=== PATIENT | female | born 1940 | race Caucasian/White ===

== ENCOUNTER 2019-07-14 02:36 | Inpatient (IN) | payer MEDICARE, SELFPAY ==
[2019-07-14] VITALS (13 sets, daily range): BP systolic 127–179; BP diastolic 65–127; PULSE 63–96; RESP 16–20; TEMP 36.3–37.4; O2SAT 97–100; BMI 26.4; BMI 24.6
--- NOTE | 2019-07-14 02:05 | ED.DCSUM_ITS ---
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 She has no back pain she had no head injury or loss of consciousness she has no other injury. She received 25 mcg of fentanyl IM via EMS. This provided very little relief. Past Medical History - Allergies and Home Meds Allergies/Adverse Reactions: Allergies No Known Allergies Allergy (Unverified 07/14/19 02:01) Primary Care Physician: Shelley Dubon,Out of [NON-STAFF] - Past Medical History: - - Reviewed and unremarkable Smoking Status: Former smoker Review of Systems General: Reports: - - No head injury or loss of consciousness Cardiovascular: Denies: Chest pain Respiratory: Denies: Dyspnea Gastrointestinal: Denies: Abdominal pain, Nausea Genitourinary: Denies: Dysuria Musculoskeletal: Reports: Arthralgias, Extremity Pain Skin: Denies: Wounds Neurological: Denies: Headache, Weakness, Parasthesia, Numbness Psych: Denies: Anxiety Hematologic: Denies: Easy bruising Physical Exam Vital Signs/Narrative: Vital Signs Temp Pulse Resp BP Pulse Ox 07/14/19 01:54 97.4 F L 67 20 H 179/127 H 98 General: Well nourished, Well developed ENT: Moist mucous membranes Cardiovascular: Regular rate, Regular rhythm Respiratory: No distress, CTA bilaterally Abdomen: Soft, Nontender Back: Nontender, Normal Inspection Extremities: - - Left hip is shortened and externally rotated, it is painful to logrolling. She has normal distal pulses. Skin: Normal color Neurological: Alert, Normal Strength, Normal Sensation Diagnostic/Tx/Re-eval Chest X-Ray - ED: 1 View, Read by ED Physician, Normal, Heart, Lungs Left hip x-ray interpreted by me, shows a femoral neck fracture, it is displaced. - Rhythm Strip Rhythm Strip: A-fib Rate: 91 Ectopy: PVC(s) - EKG Initial EKG Interpretation: - - Atrial fibrillation with a rate of 91. There are some PVCs present. There is nonspecific ST and T wave abnormalities. Otherwise normal EKG Interpreted by emergency doctor - Medical Decision Making Patient is found to have a femoral neck fracture. She is on Xarelto, I will call orthopedics as well as hospitalist for admission. ED Disposition - Plan for ED Patient: Disposition: Home or Assisted Living Diagnosis: Hip fracture Referrals: Town Doctor,Out of [NON-STAFF] -
[2019-07-14] MEDS: Morphine 4 MG/ML Syringe IV ×3 (02:14→06:22)
[2019-07-14] MEDS: Ondansetron 4 MG/2 ML Vial IV ×3 (02:14→19:49)
[2019-07-14 02:43] LABS: Absolute Lymphocyte Count 2.35 X10^3/uL (0.83-4.51); Absolute Neutrophil Count 3.6 X10^3/uL (2.0-7.7); Basophil# 0.03 X10^3/uL; Basophil% 0.4 % (0-1); Eosinophils% 1.4 % (0-5); Hematocrit 43.7 % (37-47); Lymphocyte # 2.35 X10^3/ul (4.0); Lymphocyte % 33.7 % (19-41); Mean Corpuscular Hgb 32.5 pg (27.0-32.0); Mean Corpuscular Volume 101.4 fL (81-99); Mean Platelet Vol. 9.4 fl (6.2-12.0); Monocyte# 0.85 X10^3/uL; Monocyte% 12.2 % (0-10); NRBC Flagged by Analyzer 0 % (0-5); Neutrophil # 3.56 X10^3/uL (2.7-7.7); Neutrophil % 51.2 % (47-70); Platelet Count 215 K/mm3 (150-450); RBC Distribution Width SD 52.8 fl (35.1-43.9); Red Blood Count 4.31 M/mm3 (4.2-5.4)
--- NOTE | 2019-07-14 02:45 | RAD_ITS ---
STUDY: X-RAY CHEST REASON FOR EXAM: Female, 71 years old. TRUAMA, LEFT HIP PAIN TECHNIQUE: Single AP portable view of the chest. COMPARISON: None. 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 The lungs are clear and expanded. There is no demonstrated pleural abnormality. Normal size heart. Normal mediastinum and jonathon. Normal visualized pulmonary arteries. There is atherosclerotic calcification of the aortic arch with tortuosity. There is demineralization of the osseous structures. There is degenerative osteoarthritis of the bilateral shoulders. There is no demonstrated abnormality of the visualized soft tissue structures of the upper abdomen. RAD/Chest 1 View IMPRESSION: No acute cardiopulmonary disease. Electronically Signed: Tammy Miller MD at 3:53 EDT , Service support ,
--- NOTE | 2019-07-14 02:45 | RAD_ITS ---
STUDY: X-RAY - PELVIS AND LEFT HIP REASON FOR EXAM: Female, 78 years old. Trauma LEFT HIP PAIN TECHNIQUE: 3 views of the pelvis and hip. COMPARISON: None. FINDINGS: There is an impacted transcervical fracture of the LEFT hip with varus deformity. There is NO dislocation. The bony pelvis is intact. The soft tissues are RAD/HIP, UNI W/ Pelvis 2-3 Views IMPRESSION: Fracture of the LEFT hip. Electronically Signed: Darrius Ramachandran MD at 3:57 EDT , Service support ,
[2019-07-14 02:47] LABS: ALB/GLOB Ratio 1.1 RATIO (0.9-2.4); AST(SGOT) 18 U/L (15-37); Alanine Aminotransfer ALT/SGPT 23 U/L (13-56); Albumin, Serum 3.4 g/dL (3.2-5.0); Alkaline Phosphatase 70 U/L (45-117); Anion Gap 3 (5-15); BUN 28 mg/dL (7-18); BUN/Creat Ratio 30.2 RATIO (10-20); Chloride 104 mmol/L (98-107); Creatinine, Serum 0.93 mg/dL (0.55-1.02); EST Glomerular Filtration Rate 63 mL/min (>60); Est Glom Filt Rate - Afr Amer 77 mL/min (>60); Estimated Creatinine Clearance 52.69 ml/min; Globulin 3.2 g/dL (2.2-4.2); Glucose 124 mg/dL (74-106); Protein, Total 6.6 g/dL (6.4-8.2); Sodium Level 141 mmol/L (136-145)
--- NOTE | 2019-07-14 03:31 | PCM.HP.STD ---
History of Present Illness Date of Admission: 07/14/19 Chief Complaint: L hip pain s/p fall The patient is a 78 y/o F w/ PMHx: PAF who presents to the [facility] ED on 07/14/19 with history of mechanical fall, tripping on a rug and falling backwards landing onto her left hip with immediate onset of significant pain into her left hip and left buttock with debility and obvious deformity prompting ED evaluation. Work-up in the ED included T 97.4, heart rate 67, BP 179/127 initially, repeat 177/95, respiratory rate 20, 90% on room air, CBC with WBC 7, hemoglobin 14, platelet 215 with increased immature granulocytes otherwise not market shift, CMP with carbon dioxide 34, BUN/creatinine 28/0.93, glucose 124, in-house COVID lab pending given operative intervention needs per protocol, chest x-ray with unremarkable, plain film of the left hip and pelvis with L femoral neck fracture, EKG with rate controlled atrial fibrillation with changes of unclear chronicity. Patient notes that she is normally very active and only health issue is the atrial fibrillation. She believes that her last echocardiogram was approximately 5 years ago. She is following with cardiology in [place] but states she recently switched and cannot currently give the name. She denied any recent history of shortness of breath or chest discomfort. In the ED patient ministered morphine, Zofran and normal saline. ED discussed case with Dr. Arredondo. Last dose xarelto 07/13/19 pm. Past Medical History Allergies No Known Allergies Allergy (Unverified 07/14/19 02:01) Home Medications: Ambulatory Orders Medication Instructions Recorded Diltiazem [Cardizem] 30 mg PO DAILY 07/14/19 Rivaroxaban [Xarelto] 15 mg PO 07/14/19 Surgical History: - - Bilateral tubal ligation, hysterectomy. Psychiatric History: No pertinent psych hx ADULT PSYCHIATRIST History: No pertinent ADULT PSYCHIATRIST history Lives: Spouse/ Significant Other Smoking Status: Former smoker - Patient quit cigarette tobacco usage approximately 30 years prior to current presentation with prior to this 4 to 6 cigarettes daily. Tobacco Use: Non-smoker Alcohol: None Drugs: None - *Family History Maternal History Items: Stroke Paternal History Items: High Cholesterol, Heart Disease, Hypertension Review of Systems Constitutional: Reports: Malaise, Weakness, Fatigue. Denies: Anorexia, Chills, Fever, Weight Change HEENT: Denies: Head Aches, Sinus Congestion, Sinus Drainage Cardiovascular: Denies: Chest Pain, Palpitations Respiratory: Denies: Cough, Shortness of breath at rest, Sputum production Gastrointestinal: Reports: Nausea. Denies: Abdominal Pain, Vomiting Genitourinary: Denies: Dysuria Musculoskeletal: Reports: Joint Pain, Joint stiffness, Joint swelling, Joint Tenderness, Leg Pain, Muscle pain Skin: Denies: Rash, Wounds Neurological: Denies: Numbness, Tingling, Focal weakness Psychiatric: Denies: Anxiety, Depression, Homicidal Ideations, Suicidal Ideations Hematologic/ Lymphatic: Reports: Easy Bruising, Easy Bleeding VTE Information - Inpt Only VTE Present on Admission: No VTE Mechan Device Prophylaxis: SCD's VTE Pharm Prophylaxis ordered?: No Reason prophylaxis not ordered:: Medical Contraindication - Last Xarelto dose 07/13/2019 p.m. Subjective: Laying in the ED bed, notes pain worsening again, notes muscle cramping in her groin region. Objective: Physical Examination: General: awake, alert, oriented x 3 and cooperative, laying in the ED bed, uncomfortable appearing. Skin: normal color, turgor, no icterus, cyanosis except noted facial abrasions. HEENT: AT/NC, EOMI, PERRLA, dry MM, no carotid bruits or JVD noted. Lungs: CTA bilaterally, moderate effort, moderate decrease BL bases, no rales, ronchi or wheezing. Heart: Irregular, rate controlled; no gallop, rub audible. Abdomen: soft, NTTP, ND, normal BS, no HSM. Extremities: no cyanosis, clubbing, status post mechanical fall with left hip fracture, externally rotated, peripheral pulses intact. Neurological: patient awake, alert, oriented x 3; cognitive function intact; pupils equally reactive to light and accomodation; cranial nerves II-XII grossly normal, moving right lower extremity and bilateral upper extremity, left lower extremity movement request deferred given left hip fracture, strength severely global decrease given acute presentation. Psychiatric: affect appears uncomfortable, no acute evidence of depressive or anxiety feelings. - Physical Exam Vitals/I&O's: Vital Signs Temp Pulse Resp BP Pulse Ox 97.4 F L 67 20 H 177/95 H 98 07/14/19 01:54 07/14/19 01:54 07/14/19 01:54 07/14/19 02:03 07/14/19 01:54 Oxygen Delivery Method Room Air Weight: 163 lb 5.8 oz Body Mass Index (BMI) 26.4 Laboratory Results 07/14/19 02:15: WBC 7.0, RBC 4.31, Hgb 14.0, Hct 43.7, MCV 101.4 H, MCH 32.5 H, MCHC 32.0, RDW Std Deviation 52.8 H, RDW Coeff of Jinny 14.0, Plt Count 215, MPV 9.4, Immature Gran % (Auto) 1.100 H, Neut % (Auto) 51.2, Lymph % (Auto) 33.7, [place] % (Auto) 12.2 H, Eos % (Auto) 1.4, Baso % (Auto) 0.4, Absolute Neuts (auto) 3.6, Absolute Lymphs (auto) 2.35, Nucleated RBC % 0 07/14/19 02:15: Sodium 141, Potassium 4.0, Chloride 104, Carbon Dioxide 34.0 H, Anion Gap 3 L, BUN 28 H, Creatinine 0.93, Estim Creat Clear Calc 52.69, Est GFR (MDRD) Af Amer 77, Est GFR (MDRD) Non-Af 63, BUN/Creatinine Ratio 30.2 H, Glucose 124 H, Calcium 9.0, Total Bilirubin 0.30, AST 18, ALT 23, Alkaline Phosphatase 70, Total Protein 6.6, Albumin 3.4, Globulin 3.2, Albumin/Globulin Ratio 1.1 07/14/19 03:00: COVID-19 (TWILA) Cancelled Assessment/Plan The patient is a 78 y/o F w/ PMHx: PAF who presents to the [facility] ED on 07/14/19 with history of mechanical fall, tripping on a rug and falling backwards landing onto her left hip with immediate onset of significant pain into her left hip and left buttock with debility and obvious deformity prompting ED evaluation. 1. General debility, L hip pain s/p mechanical fall w/ L femoral neck fracture: Plain film noting L femoral neck fracture. Orthopedic surgery consulted from ED. Will admit to MS, allow cardiac diet with possible OR 07/15/19 versus 07/16/19 given xaretlo last dose 07/13/19 pm, continue gentle IVFs, obtain TSH, Mag level, UA, yarbrough placement, monitor I/Os, frequent positioning, fall precautions, type and screen. Pain, anti-emetic regimen. PT/OT following operative intervention. CM consulted for discharge planning. Based on patient clinical history and evaluation per surgical risk calculator NSQIP patient risk below average for serious complications or any complication therefore planned admission to medical surgical floor however given unclear cardiac history will maintain on potline monitor. Will obtain cardiac enzyme assessment, EKG obtained in the ED and noted to be atrial fibrillation with nonspecific changes of unclear chronicity, rate controlled. Pending surgical timeline given Xarelto usage will obtain echocardiogram. Agree to progression to operative intervention once operative date set. 2. PAF: We will continue patient home Cardizem regimen, hold Xarelto, EKG with atrial fibrillation, rate controlled, cardiac enzyme and echocardiogram requested. 3. DVT prophylaxis: SCDs, hold anticoagulant therapy as noted for evaluation for operative intervention. 4. CODE status: Patient does not have healthcare power of ip technology transactions attorney nor living will set up. She is . Encouraged her following discharge to set up these items with her specially given her advanced age. Discussed CODE status at length including difference between FULL code, DNR-CCA and DNR-CC status. Following discussions about the differences in these status, requested full code status. Advanced Care Planning Face to Face Time: 16 minutes. Inpatient E&M: 29019 Init Hosp L3 Procedures: 34257 Advncd Care Plan 30 Min
[2019-07-14] MEDS: DiphenhydrAMINE 50 MG/ML Syringe 25 MG IV (06:22)
--- NOTE | 2019-07-14 06:35 | ED.RN ---
pt requests additional medication for pain. pt reports morphine is causing her to feel like bugs are crawling on her. dr kilpatrick notified. benadryl to be given w/morphine.
--- NOTE | 2019-07-14 06:54 | ECHOD_ITS ---
Reason For Study: Arrhythmia Procedure This was a 2D Doppler, Color Flow transthoracic echocardiogram. Patient scanned supine due to fractured hip. Exam performed portable in patient room. Left Ventricle Normal LV size. Left ventricular systolic function is normal. The estimated ejection fraction is 65 %. Unable to assess diastolic dysfunction due to arrhythmia. No regional wall motion abnormalities noted. Right Ventricle Normal RV size. ICD or pacer leads identified within the right ventricle. Normal systolic function. Atria Normal left atrium. Normal right atrium. Mitral Valve Normal mitral valve. Tricuspid Valve Normal tricuspid valve. Mild (1+) tricuspid valve insufficiency. Pulmonary artery systolic pressure is 23 mmHg. Aortic Valve Trisinus/trileaflet aortic valve. Pulmonic Valve Normal pulmonic valve. Great Vessels Normal aortic root. The pulmonary artery is normal size. Normal inferior vena cava. Pericardium/Pleural No pericardial effusion. MMode/2D Measurements & Calculations LVIDd: 4.0 cm IVSd: 1.0 cm Ao root diam: 3.3 cm LVIDs: 3.1 cm LVPWd: 0.99 cm RVDd: 3.2 cm FS: 23.3 % LAV(MOD-bp): 51.5 ml LA A4 area: 19.0 cm2 LA dimension(2D): 4.3 cm LAV(MOD-bp) Indexed: 28.1 ml/m2 LAV(MOD-sp2): 49.8 ml LAV(MOD-sp4): 52.8 ml RA A4 area: 15.4 cm2 Doppler Measurements & Calculations MV E max manny: 70.4 cm/sec Ao V2 max: 113.9 cm/sec LV V1 max: 87.0 cm/sec Ao max P.2 mmHg LV V1 max P.0 mmHg PA V2 max: 103.4 cm/sec TR max manny: 223.7 cm/sec TR max P.1 mmHg Interpretation Summary Normal LV size. Left ventricular systolic function is normal. The estimated ejection fraction is 65 %. Unable to assess diastolic dysfunction due to arrhythmia. Ordering Physician: Betty Cabrera Referring Physician: Betty Cabrera Performed By: Swetha Langford RDCS
[2019-07-14 07:41] LABS: Magnesium 1.9 mg/dL (1.6-2.6)
[2019-07-14] MEDS: 0.9% Normal Saline 1,000 ML 100 ML IV ×2 (08:57→17:42)
[2019-07-14] MEDS: HYDROmorphone 1 MG/ML Syringe IV ×2 (08:58→19:50)
[2019-07-14] MEDS: 0.9% Saline Lock 10 ML Syringe IV ×2 (09:03→19:49)
--- NOTE | 2019-07-14 09:57 | PCM.CONS.GEN ---
Reason for Consult Date of Consultation: 07/14/19 Reason for Consultation: left hip pain History of Present Illness: The patient is a 78 year old F [whop fell last night at her daughter's suffering a subcapital fracture of her left hip. She has a history of atrial fibrillation and is on Xarelto. She took her last dose of Xarelto at 7 o'clock last night.] ROS, PMHx, PSHx, Family HX, Meds and allergies reviewed per intake H&P. Past Medical History Allergies No Known Allergies Allergy (Unverified 07/14/19 02:01) Home Medications: Ambulatory Orders Medication Instructions Recorded Diltiazem HCl [Diltiazem ER] 180 mg PO DAILY 07/14/19 Rivaroxaban [Xarelto] 15 mg PO DAILY 07/14/19 Surgical History: - - Bilateral tubal ligation, hysterectomy. 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 Lives: Spouse/ Significant Other Smoking Status: Former smoker Tobacco Use: Non-smoker Alcohol: None Drugs: None - *Family History Maternal History Items: Stroke Paternal History Items: High Cholesterol, Heart Disease, Hypertension Patient Problems: Active and Suspected Problems Hip fracture (Acute) - Physical Exam Vitals/I&O's: Vital Signs Temp Pulse Resp BP Pulse Ox 97.8 F 96 20 H 170/83 H 100 07/14/19 06:56 07/14/19 09:00 07/14/19 06:56 07/14/19 06:56 07/14/19 06:56 Oxygen Delivery Method Room Air Weight: 155 lb 3.287 oz Body Mass Index (BMI) 24.6 Intake and Output for Last 24 Hours 07/12/19 07/13/19 07/14/19 23:59 23:59 23:59 Intake Total 500 / 500 Balance 500 / 500 General: Alert, Oriented x3, No apparent distress Extremities: Tenderness - Left hip. LLE is shortened and externally rotated. Neurological: Neuro grossly intact Microbiology Past 72 Hours 07/14/19 03:00 Mucosa - Nasopharyngeal Coronavirus COVID-19 PCR - Final Laboratory Results 07/14/19 02:15: WBC 7.0, RBC 4.31, Hgb 14.0, Hct 43.7, MCV 101.4 H, MCH 32.5 H, MCHC 32.0, RDW Std Deviation 52.8 H, RDW Coeff of Jinny 14.0, Plt Count 215, MPV 9.4, Immature Gran % (Auto) 1.100 H, Neut % (Auto) 51.2, Lymph % (Auto) 33.7, [place] % (Auto) 12.2 H, Eos % (Auto) 1.4, Baso % (Auto) 0.4, Absolute Neuts (auto) 3.6, Absolute Lymphs (auto) 2.35, Nucleated RBC % 0 07/14/19 02:15: Sodium 141, Potassium 4.0, Chloride 104, Carbon Dioxide 34.0 H, Anion Gap 3 L, BUN 28 H, Creatinine 0.93, Estim Creat Clear Calc 52.69, Est GFR (MDRD) Af Amer 77, Est GFR (MDRD) Non-Af 63, BUN/Creatinine Ratio 30.2 H, Glucose 124 H, Calcium 9.0, Total Bilirubin 0.30, AST 18, ALT 23, Alkaline Phosphatase 70, Total Protein 6.6, Albumin 3.4, Globulin 3.2, Albumin/Globulin Ratio 1.1 07/14/19 03:00: COVID-19 (TWILA) Cancelled 07/14/19 07:10: Magnesium 1.9, Troponin I < 0.015 07/14/19 07:10: Blood Type A POSITIVE, Antibody Screen NEGATIVE Current Medications Acetaminophen (Tylenol) 650 mg PO Q6H PRN PRN PRN Reason: Pain Score 1-10/Temp > 100.7 F Al Hydroxide/Mg Hydroxide (Mylanta Ii) 30 ml PO Q6H PRN PRN PRN Reason: Gastric Burning Albuterol Sulfate (Ventolin Aerosols) 2.5 mg INHALATION Q2H PRN PRN PRN Reason: Shortness of Breath/Wheezing Dextrose (D50w Syringe) 0 gm IV X1 PRN; Protocol PRN Reason: Hypoglycemia Diltiazem HCl (Cardizem Cd) 180 mg PO DAILY SARA Famotidine (Pepcid) 20 mg PO BID SARA Glucagon () 1 mg IM .X1 PRN PRN Reason: Hypoglycemia Guaifenesin (Robitussin) 20 ml PO Q4H PRN PRN PRN Reason: COUGH Hydralazine HCl (Apresoline Iv) 10 mg IV Q4H PRN PRN PRN Reason: SBP > 160 Hydromorphone HCl (Dilaudid Inj) 1 mg IV Q3H PRN PRN PRN Reason: severe pain 6-10/10 Last Admin: 07/14/19 08:58 Dose: 1 mg Documented by: Sodium Chloride () 1,000 mls @ 100 mls/hr IV .Q10H SARA Last Admin: 07/14/19 08:57 Dose: 100 mls/hr Documented by: Magnesium Hydroxide (Milk Of Magnesia) 30 ml PO DAILY PRN PRN PRN Reason: Constipation Melatonin (Melatonin) 3 mg PO QHS PRN PRN PRN Reason: INSOMNIA Nitroglycerin (Nitrostat) 0.4 mg SUBLINGUAL Q5M PRN PRN Reason: CARDIAC/CHEST PAIN Ondansetron HCl (Zofran) 4 mg IV Q8H PRN PRN PRN Reason: NAUSEA/VOMITING Oxycodone HCl (Oxyir) 5 mg PO Q4H PRN PRN PRN Reason: Pain Score 4-5/10 Prochlorperazine Edisylate (Compazine Iv) 5 mg IV Q4H PRN PRN PRN Reason: Breakthrough nausea/vomiting Psyllium Hydrophilic Mucilloid (Metamucil) 1 packet PO DAILY PRN PRN PRN Reason: Constipation Senna/Docusate Sodium (Senokot-S, Brigid-Colace) 2 tablet PO BID PRN PRN PRN Reason: Constipation Sodium Chloride () 10 - 40 ml IV UD PRN PRN Reason: SALINE FLUSH Last Admin: 07/14/19 09:03 Dose: 10 ml Documented by: Throat Lozenges (Cepacol Sore Throat Lozenge) 1 lozenge MUCOUS MEM Q2H PRN PRN PRN Reason: SORE THROAT Assessment/Plan All Active Problems Hip fracture (Acute) Garden Classification 4 fracture left hip Will plan on hemiarthroplasty of left hip. I reviewed the potential risks, complications, benefits and non-surgical options with her and whe does wish to proceed. Given the fact that she took Xarelto within the last 24 hours and is stable, we will plan on surgery for Monday to limit the deleterious bleeding effects of Xarelto.
--- NOTE | 2019-07-14 10:39 | PCM.PN.HOSP ---
<Bethel López - Last Filed: 07/14/19 10:39> Patient Problems: Active and Suspected Problems Hip fracture (Acute) Reason for Visit: left hip fx Subjective: Ongoing left hip pain, severe. Still hurts at rest. She is having groin muscle spasms which increase her pain significantly. Also very concerned about chronic constipation being worsened by her current situation. She uses prn miralax about twice per week normally. Vitals/I&O's: Vital Signs Temp Pulse Resp BP Pulse Ox 97.8 F 96 20 H 170/83 H 100 07/14/19 06:56 07/14/19 09:00 07/14/19 06:56 07/14/19 06:56 07/14/19 06:56 Oxygen Delivery Method Room Air Weight: 155 lb 3.287 oz Body Mass Index (BMI) 24.6 Intake and Output for Last 24 Hours 07/12/19 07/13/19 07/14/19 23:59 23:59 23:59 Intake Total 500 / 500 Balance 500 / 500 General: Alert, Oriented x3, Cooperative HEENT: Atraumatic, PERRLA, EOMI, Normocephalic Neck: Supple, No JVD, Negative Carotid Bruits Lungs: Clear to auscultation, Normal air movement Cardiovascular: Regular rate, No murmurs Abdomen: Bowel Sounds Present, Soft, Non Tender Extremities: No edema, Capillary Refill Less than 3 Seconds Skin: No rashes, No breakdown Musculoskeletal: - - lft hip tenderness. PMS intact. Neurological: Cranial nerves II-XII grossly intact Psych/Mental Status: Appropriate, Anxious, Alert and oriented to time, place, person, mood and affect Microbiology Past 72 Hours 07/14/19 03:00 Mucosa - Nasopharyngeal Coronavirus COVID-19 PCR - Final Laboratory Results 07/14/19 02:15: WBC 7.0, RBC 4.31, Hgb 14.0, Hct 43.7, MCV 101.4 H, MCH 32.5 H, MCHC 32.0, RDW Std Deviation 52.8 H, RDW Coeff of Jinny 14.0, Plt Count 215, MPV 9.4, Immature Gran % (Auto) 1.100 H, Neut % (Auto) 51.2, Lymph % (Auto) 33.7, [place] % (Auto) 12.2 H, Eos % (Auto) 1.4, Baso % (Auto) 0.4, Absolute Neuts (auto) 3.6, Absolute Lymphs (auto) 2.35, Nucleated RBC % 0 07/14/19 02:15: Sodium 141, Potassium 4.0, Chloride 104, Carbon Dioxide 34.0 H, Anion Gap 3 L, BUN 28 H, Creatinine 0.93, Estim Creat Clear Calc 52.69, Est GFR (MDRD) Af Amer 77, Est GFR (MDRD) Non-Af 63, BUN/Creatinine Ratio 30.2 H, Glucose 124 H, Calcium 9.0, Total Bilirubin 0.30, AST 18, ALT 23, Alkaline Phosphatase 70, Total Protein 6.6, Albumin 3.4, Globulin 3.2, Albumin/Globulin Ratio 1.1 07/14/19 03:00: COVID-19 ([facility]IL[facility]) Cancelled 07/14/19 07:10: Magnesium 1.9, Troponin I < 0.015 07/14/19 07:10: Blood Type A POSITIVE, Antibody Screen NEGATIVE Current Medications Acetaminophen (Tylenol) 650 mg PO Q6H PRN PRN PRN Reason: Pain Score 1-10/Temp > 100.7 F Al Hydroxide/Mg Hydroxide (Mylanta Ii) 30 ml PO Q6H PRN PRN PRN Reason: Gastric Burning Albuterol Sulfate (Ventolin Aerosols) 2.5 mg INHALATION Q2H PRN PRN PRN Reason: Shortness of Breath/Wheezing Dextrose (D50w Syringe) 0 gm IV X1 PRN; Protocol PRN Reason: Hypoglycemia Diltiazem HCl (Cardizem Cd) 180 mg PO DAILY [facility] Famotidine (Pepcid) 20 mg PO BID [facility] Glucagon () 1 mg IM .X1 PRN PRN Reason: Hypoglycemia Guaifenesin (Robitussin) 20 ml PO Q4H PRN PRN PRN Reason: COUGH Hydralazine HCl (Apresoline Iv) 10 mg IV Q4H PRN PRN PRN Reason: SBP > 160 Hydromorphone HCl (Dilaudid Inj) 1 mg IV Q3H PRN PRN PRN Reason: severe pain 6-10/10 Last Admin: 07/14/19 08:58 Dose: 1 mg Documented by: Sodium Chloride () 1,000 mls @ 100 mls/hr IV .Q10H [facility] Last Admin: 07/14/19 08:57 Dose: 100 mls/hr Documented by: Magnesium Hydroxide (Milk Of Magnesia) 30 ml PO DAILY [facility] Melatonin (Melatonin) 3 mg PO QHS PRN PRN PRN Reason: INSOMNIA Nitroglycerin (Nitrostat) 0.4 mg SUBLINGUAL Q5M PRN PRN Reason: CARDIAC/CHEST PAIN Ondansetron HCl (Zofran) 4 mg IV Q8H PRN PRN PRN Reason: NAUSEA/VOMITING Oxycodone HCl (Oxyir) 5 mg PO Q4H PRN PRN PRN Reason: Pain Score 4-5/10 Polyethylene Glycol (Miralax) 17 gm PO DAILY PRN PRN PRN Reason: Constipation Prochlorperazine Edisylate (Compazine Iv) 5 mg IV Q4H PRN PRN PRN Reason: Breakthrough nausea/vomiting Psyllium Hydrophilic Mucilloid (Metamucil) 1 packet PO DAILY PRN PRN PRN Reason: Constipation Senna/Docusate Sodium (Senokot-S, Brigid-Colace) 2 tablet PO BID PRN PRN PRN Reason: Constipation Sodium Chloride () 10 - 40 ml IV UD PRN PRN Reason: SALINE FLUSH Last Admin: 07/14/19 09:03 Dose: 10 ml Documented by: Throat Lozenges (Cepacol Sore Throat Lozenge) 1 lozenge MUCOUS MEM Q2H PRN PRN PRN Reason: SORE THROAT Tizanidine HCl (Zanaflex) 4 mg PO Q8H PRN PRN PRN Reason: muscle spasms STROKE Vital Signs/Narrative: Vital Signs Temp Pulse Resp BP Pulse Ox 07/14/19 09:00 96 07/14/19 06:56 97.8 F 79 20 H 170/83 H 100 Medical Necessity - Tobacco Use Smoking Status: Former smoker Tobacco Use: Non-smoker Assessment/Plan All Active Problems Hip fracture (Acute) 1. left hip fx - ortho following. surgery once ok with ortho, delayed due to xarelto - plan is for OR monday. added muscle relaxer as she is having left groin spasms that are aggravating the hip pain. Covid19 test negative. 2. chronic constipation - added daily MoM and prn miralax which she uses at home. 3. pAfib - xarelto held - continue cardizem. Echo pending. EKG shows Afib. trop neg. 4. HTN - suspect 2/2 pain, defer new htn meds at this time. DVT ppx: SCDs DC planning: pt from [place], she is here visiting family This patient was seen by Bethel López PA-C under the supervision of Dr. Magana <Radha Magana E - Last Filed: 07/14/19 12:52> Vitals/I&O's: Vital Signs Temp Pulse Resp BP Pulse Ox 97.8 F 96 20 H 170/83 H 98 07/14/19 06:56 07/14/19 09:00 07/14/19 06:56 07/14/19 06:56 07/14/19 10:40 Oxygen Delivery Method Room Air Weight: 155 lb 3.287 oz Body Mass Index (BMI) 24.6 Intake and Output for Last 24 Hours 07/12/19 07/13/19 07/14/19 23:59 23:59 23:59 Intake Total 500 / 500 Balance 500 / 500 Microbiology Past 72 Hours 07/14/19 03:00 Mucosa - Nasopharyngeal Coronavirus COVID-19 PCR - Final Laboratory Results 07/14/19 02:15: WBC 7.0, RBC 4.31, Hgb 14.0, Hct 43.7, MCV 101.4 H, MCH 32.5 H, MCHC 32.0, RDW Std Deviation 52.8 H, RDW Coeff of Jinny 14.0, Plt Count 215, MPV 9.4, Immature Gran % (Auto) 1.100 H, Neut % (Auto) 51.2, Lymph % (Auto) 33.7, [place] % (Auto) 12.2 H, Eos % (Auto) 1.4, Baso % (Auto) 0.4, Absolute Neuts (auto) 3.6, Absolute Lymphs (auto) 2.35, Nucleated RBC % 0 07/14/19 02:15: Sodium 141, Potassium 4.0, Chloride 104, Carbon Dioxide 34.0 H, Anion Gap 3 L, BUN 28 H, Creatinine 0.93, Estim Creat Clear Calc 52.69, Est GFR (MDRD) Af Amer 77, Est GFR (MDRD) Non-Af 63, BUN/Creatinine Ratio 30.2 H, Glucose 124 H, Calcium 9.0, Total Bilirubin 0.30, AST 18, ALT 23, Alkaline Phosphatase 70, Total Protein 6.6, Albumin 3.4, Globulin 3.2, Albumin/Globulin Ratio 1.1 07/14/19 03:00: COVID-19 ([facility]) Cancelled 07/14/19 07:10: Magnesium 1.9, Troponin I < 0.015 07/14/19 07:10: Blood Type A POSITIVE, Antibody Screen NEGATIVE Current Medications Acetaminophen (Tylenol) 650 mg PO Q6H PRN PRN PRN Reason: Pain Score 1-10/Temp > 100.7 F Al Hydroxide/Mg Hydroxide (Mylanta Ii) 30 ml PO Q6H PRN PRN PRN Reason: Gastric Burning Albuterol Sulfate (Ventolin Aerosols) 2.5 mg INHALATION Q2H PRN PRN PRN Reason: Shortness of Breath/Wheezing Dextrose (D50w Syringe) 0 gm IV X1 PRN; Protocol PRN Reason: Hypoglycemia Diltiazem HCl (Cardizem Cd) 180 mg PO DAILY [facility] Famotidine (Pepcid) 20 mg PO BID [facility] Glucagon () 1 mg IM .X1 PRN PRN Reason: Hypoglycemia Guaifenesin (Robitussin) 20 ml PO Q4H PRN PRN PRN Reason: COUGH Hydralazine HCl (Apresoline Iv) 10 mg IV Q4H PRN PRN PRN Reason: SBP > 160 Hydromorphone HCl (Dilaudid Inj) 1 mg IV Q3H PRN PRN PRN Reason: severe pain 6-10/10 Last Admin: 07/14/19 08:58 Dose: 1 mg Documented by: Sodium Chloride () 1,000 mls @ 100 mls/hr IV .Q10H [facility] Last Admin: 07/14/19 08:57 Dose: 100 mls/hr Documented by: Magnesium Hydroxide (Milk Of Magnesia) 30 ml PO DAILY [facility] Melatonin (Melatonin) 3 mg PO QHS PRN PRN PRN Reason: INSOMNIA Nitroglycerin (Nitrostat) 0.4 mg SUBLINGUAL Q5M PRN PRN Reason: CARDIAC/CHEST PAIN Ondansetron HCl (Zofran) 4 mg IV Q8H PRN PRN PRN Reason: NAUSEA/VOMITING Oxycodone HCl (Oxyir) 5 mg PO Q4H PRN PRN PRN Reason: Pain Score 4-5/10 Polyethylene Glycol (Miralax) 17 gm PO DAILY PRN PRN PRN Reason: Constipation Prochlorperazine Edisylate (Compazine Iv) 5 mg IV Q4H PRN PRN PRN Reason: Breakthrough nausea/vomiting Psyllium Hydrophilic Mucilloid (Metamucil) 1 packet PO DAILY PRN PRN PRN Reason: Constipation Senna/Docusate Sodium (Senokot-S, Brigid-Colace) 2 tablet PO BID PRN PRN PRN Reason: Constipation Sodium Chloride () 10 - 40 ml IV UD PRN PRN Reason: SALINE FLUSH Last Admin: 07/14/19 09:03 Dose: 10 ml Documented by: Throat Lozenges (Cepacol Sore Throat Lozenge) 1 lozenge MUCOUS MEM Q2H PRN PRN PRN Reason: SORE THROAT Tizanidine HCl (Zanaflex) 4 mg PO Q8H PRN PRN PRN Reason: muscle spasms STROKE Vital Signs/Narrative: Vital Signs Pulse Pulse Ox 07/14/19 10:40 98 07/14/19 09:00 96 Assessment/Plan Hospitalist note: I am seeing this patient in conjunction with Bethel López. I independently seen and examined the patient. Progress note above, laboratory data and imaging studies reviewed and I concur with the above treatment plan. Patient still complaining of left hip pain upon movement. Denies other complaints. Her blood pressures like elevated, other vital signs are stable. Assessment and plan: #1 acute traumatic left hip fracture: Orthopedic surgery consulted, plan for surgery after tomorrow. Patient was on Xarelto, discontinued. #2 preoperative evaluation: 78 years old female patient with past history of A. fib, status post pacemaker, on Xarelto. Preoperative EKG revealed A. fib with PVCs, no acute ischemic changes. Troponin is negative. Chest x-ray showed chronic fibrotic changes, no acute infiltrate. Routine blood work was unremarkable. Based on her past medical history, functional status, serum creatinine and type of surgery, his estimated risk for perioperative myocardial infarction or cardiac arrest is 0.2%. Based on ACS NSQIP surgical risk calculator, her risk of serious complications as below others and predicted length of stay is 4.5 days after surgery. This patient is at least at moderate risk for intraoperative and postoperative complications. At this time, no indication for further testing. We can proceed with surgery. #3 other chronic medical problems: Stable, continue current medications as above. This note was generated with [employer] dictation software. It may contain incorrect words, spelling, and punctuation that were not noted in checking the note before signing.
[2019-07-14] MEDS: Magnesium Oxide 400 MG Tablet 800 MG PO (12:51)
[2019-07-14] MEDS: Famotidine 20 MG Tablet PO ×2 (12:51→22:49)
[2019-07-14] MEDS: tiZANidine HCl 2 MG Tablet 4 MG PO ×2 (12:51→22:48)
[2019-07-14] MEDS: oxyCODONE 5 MG Tablet PO ×3 (15:29→22:48)
[2019-07-14] MEDS: Senna/Docusate Sodium 1 Tablet 2 TABLET PO (15:30)
[2019-07-14] MEDS: Acetaminophen 325 MG Tablet 650 MG PO (19:49)
[2019-07-14] MEDS: MELATONIN 3 MG TABLET PO (22:49)
[2019-07-15] VITALS (10 sets, daily range): BP systolic 104–148; BP diastolic 49–97; PULSE 60–112; RESP 16–18; TEMP 36.6–36.8; O2SAT 97–100
[2019-07-15] MEDS: oxyCODONE 5 MG Tablet PO ×4 (02:55→23:06)
[2019-07-15] MEDS: Acetaminophen 325 MG Tablet 650 MG PO ×2 (02:55→23:06)
[2019-07-15] MEDS: 0.9% Normal Saline 1,000 ML 100 ML IV ×3 (02:56→23:00)
[2019-07-15 06:20] LABS: Absolute Lymphocyte Count 1.52 X10^3/uL (0.83-4.51); Absolute Neutrophil Count 5.6 X10^3/uL (2.0-7.7); Basophil# 0.02 X10^3/uL; Basophil% 0.2 % (0-1); Eosinophils% 1.2 % (0-5); Hematocrit 41.7 % (37-47); Hemoglobin 13.3 g/dL (12.0-15.0); Lymphocyte # 1.52 X10^3/ul (4.0); Mean Corp Hgb Conc 31.9 g/dL (32-36); Mean Corpuscular Hgb 32.4 pg (27.0-32.0); Mean Corpuscular Volume 101.5 fL (81-99); Mean Platelet Vol. 9.5 fl (6.2-12.0); Monocyte# 1.19 X10^3/uL; Monocyte% 14.1 % (0-10); NRBC Flagged by Analyzer 0 % (0-5); Neutrophil # 5.55 X10^3/uL (2.7-7.7); Neutrophil % 65.8 % (47-70); Platelet Count 178 K/mm3 (150-450); RBC Distribution Width CV 14.5 % (11.6-14.6); RBC Distribution Width SD 54.4 fl (35.1-43.9); Red Blood Count 4.11 M/mm3 (4.2-5.4); White Blood Count 8.4 K/mm3 (4.4-11.0)
[2019-07-15 06:35] LABS: International Normalized Ratio 1.2; Prothrombin Time (Protime)PT. 15.1 SECONDS (11.7-14.9)
[2019-07-15 06:36] LABS: Partial Thromboplast Time 33.6 Seconds (24.1-36.2)
[2019-07-15 06:55] LABS: Anion Gap 4 (5-15); BUN 15 mg/dL (7-18); BUN/Creat Ratio 19.5 RATIO (10-20); Calcium,Total 8.2 mg/dL (8.5-10.1); Chloride 104 mmol/L (98-107); Creatinine, Serum 0.77 mg/dL (0.55-1.02); EST Glomerular Filtration Rate 77 mL/min (>60); Est Glom Filt Rate - Afr Amer 93 mL/min (>60); Glucose 105 mg/dL (74-106); Potassium 4.3 mmol/L (3.5-5.1); Sodium Level 138 mmol/L (136-145); Thyroid Stim Hormone (TSH) 0.91 uIU/mL (0.358-3.74)
[2019-07-15] MEDS: tiZANidine HCl 2 MG Tablet 4 MG PO ×2 (08:21→17:29)
[2019-07-15] MEDS: dilTIAZem CD 180 MG Capsule PO (08:29)
[2019-07-15] MEDS: Famotidine 20 MG Tablet PO ×2 (08:29→21:12)
--- NOTE | 2019-07-15 10:35 | NURSING ---
discussed pacer check order with [facility] from [facility], instructed to call PCU charge nurse about having them or ER use their pacer check box. PCU charge nurse called.
--- NOTE | 2019-07-15 10:58 | NURSING ---
pacer check completed and cied form and fax from [employer] sent to [facility]idra in [facility] as instructed.
--- NOTE | 2019-07-15 11:09 | CASEMGMT ---
Social Work Assessment Referral Date: 07/15/2019 Date of Assessment: 07/15/2019 Reason for consult: Hip fracture Informant: ANUJA Personal Status: SW met with pt to complete initial assessment and discuss discharge plans. ANUJA introduced self and role at [facility]. Pt is alert and orientated x3. Pt states that she lives in [place], was in town visiting her daughter when she slipped on a rug. Pt states that her home in [place] is four story home (split level) with about four steps to enter with handrails. Pt states that her PCP is in [place] and pharmacy is [facility] in [place]. Pt denied any DME in the home. Pt states that she was previously independent wiht ADLs, still drives. Substance Abuse Hx: Pt denied Mental Health Hx: Pt denied HHC: None SNF: None ANUJA spoke with pt regarding discharge plans including home with HHC/ outpatient therapy, SNF. Pt states that she will be returning to her daughters home initially at discharge and then eventually returning home in [place]. 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 Pt states understanding, denied additional needs or concerns at this time. Plan: TBD. Pt wishes to return home to her daughters at discharge. Tracy Rm [employer]
--- NOTE | 2019-07-15 11:16 | PN_ITS ---
<Bethel López - Last Filed: 07/15/19 11:16> Patient Problems: Active and Suspected Problems Hip fracture (Acute) Reason for Visit: left hip fx Subjective: Pt in bed supine NAD. Ongoing Left hip pain but this is improved. No fever/chills. No CP/palp. No SOB. No numbness/tingling in the LLE. Vitals/I&O's: Vital Signs Temp Pulse Resp BP Pulse Ox 98.0 F 64 16 148/76 H 97 07/15/19 09:10 07/15/19 09:10 07/15/19 09:10 07/15/19 09:10 07/15/19 09:10 Oxygen Delivery Method Room Air Weight: 155 lb 3.287 oz Body Mass Index (BMI) 24.6 Intake and Output for Last 24 Hours 07/13/19 07/14/19 07/15/19 23:59 23:59 23:59 Intake Total 1615 / 1615 923.33 / 923.33 Output Total 900 / 1800 1400 / 1400 Balance 715 / -185 -476.67 / -476.67 General: Alert, Oriented x3, Cooperative HEENT: Atraumatic, PERRLA, EOMI, Normocephalic Neck: Supple, No JVD, Negative Carotid Bruits Lungs: Clear to auscultation, Normal air movement Cardiovascular: Regular rate, No murmurs Abdomen: Bowel Sounds Present, Soft, Non Tender Extremities: No edema, Capillary Refill Less than 3 Seconds Skin: No rashes, No breakdown Musculoskeletal: No Tenderness to Palpation of Joints or Extremities Neurological: Cranial nerves II-XII grossly intact Psych/Mental Status: Normal Affect, Appropriate Microbiology Past 72 Hours 07/14/19 03:00 Mucosa - Nasopharyngeal Coronavirus COVID-19 PCR - Final Laboratory Results 07/15/19 05:56: Sodium 138, Potassium 4.3, Chloride 104, Carbon Dioxide 30.0, Anion Gap 4 L, BUN 15, Creatinine 0.77, Estim Creat Clear Calc 44.10, Est GFR (MDRD) Af Amer 93, Est GFR (MDRD) Non-Af 77, BUN/Creatinine Ratio 19.5, Glucose 105, Calcium 8.2 L, TSH 0.91 07/15/19 05:56: WBC 8.4, RBC 4.11 L, Hgb 13.3, Hct 41.7, MCV 101.5 H, MCH 32.4 H , MCHC 31.9 L, RDW Std Deviation 54.4 H, RDW Coeff of Jinny 14.5, Plt Count 178, MPV 9.5, Immature Gran % (Auto) 0.700, Neut % (Auto) 65.8, Lymph % (Auto) 18.0 L , [place] % (Auto) 14.1 H, Eos % (Auto) 1.2, Baso % (Auto) 0.2, Absolute Neuts (auto) 5.6, Absolute Lymphs (auto) 1.52, Nucleated RBC % 0 07/15/19 05:56: PT 15.1 H, INR 1.2, APTT 33.6 Current Medications Acetaminophen (Tylenol) 650 mg PO Q6H PRN PRN PRN Reason: Pain Score 1-10/Temp > 100.7 F Last Admin: 07/15/19 02:55 Dose: 650 mg Documented by: Al Hydroxide/Mg Hydroxide (Mylanta Ii) 30 ml PO Q6H PRN PRN PRN Reason: Gastric Burning Albuterol Sulfate (Ventolin Aerosols) 2.5 mg INHALATION Q2H PRN PRN PRN Reason: Shortness of Breath/Wheezing Dextrose (D50w Syringe) 0 gm IV X1 PRN; Protocol PRN Reason: Hypoglycemia Diltiazem HCl (Cardizem Cd) 180 mg PO DAILY [facility] Last Admin: 07/15/19 08:29 Dose: 180 mg Documented by: Diphenhydramine HCl (Benadryl) 25 mg IV Q6H PRN PRN PRN Reason: PRURITIS Famotidine (Pepcid) 20 mg PO BID [facility] Last Admin: 07/15/19 08:29 Dose: 20 mg Documented by: Glucagon () 1 mg IM .X1 PRN PRN Reason: Hypoglycemia Guaifenesin (Robitussin) 20 ml PO Q4H PRN PRN PRN Reason: COUGH Hydralazine HCl (Apresoline Iv) 10 mg IV Q4H PRN PRN PRN Reason: SBP > 160 Hydromorphone HCl (Dilaudid Inj) 1 mg IV Q3H PRN PRN PRN Reason: severe pain 6-10/10 Last Admin: 07/14/19 19:50 Dose: 1 mg Documented by: Sodium Chloride () 1,000 mls @ 100 mls/hr IV .Q10H [facility] Last Admin: 07/15/19 02:56 Dose: 100 mls/hr Documented by: Magnesium Hydroxide (Milk Of Magnesia) 30 ml PO DAILY [facility] Last Admin: 07/15/19 08:31 Dose: Not Given Documented by: Melatonin (Melatonin) 3 mg PO QHS PRN PRN PRN Reason: INSOMNIA Last Admin: 07/14/19 22:49 Dose: 3 mg Documented by: Nitroglycerin (Nitrostat) 0.4 mg SUBLINGUAL Q5M PRN PRN Reason: CARDIAC/CHEST PAIN Ondansetron HCl (Zofran) 4 mg IV Q8H PRN PRN PRN Reason: NAUSEA/VOMITING Last Admin: 07/14/19 19:49 Dose: 4 mg Documented by: Oxycodone HCl (Oxyir) 5 mg PO Q4H PRN PRN PRN Reason: Pain Score 4-5/10 Last Admin: 07/15/19 08:21 Dose: 5 mg Documented by: Polyethylene Glycol (Miralax) 17 gm PO DAILY PRN PRN PRN Reason: Constipation Prochlorperazine Edisylate (Compazine Iv) 5 mg IV Q4H PRN PRN PRN Reason: Breakthrough nausea/vomiting Psyllium Hydrophilic Mucilloid (Metamucil) 1 packet PO DAILY PRN PRN PRN Reason: Constipation Senna/Docusate Sodium (Senokot-S, Brigid-Colace) 2 tablet PO BID PRN PRN PRN Reason: Constipation Last Admin: 07/14/19 15:30 Dose: 2 tablet Documented by: Sodium Chloride () 10 - 40 ml IV UD PRN PRN Reason: SALINE FLUSH Last Admin: 07/14/19 19:49 Dose: 10 ml Documented by: Throat Lozenges (Cepacol Sore Throat Lozenge) 1 lozenge MUCOUS MEM Q2H PRN PRN PRN Reason: SORE THROAT Tizanidine HCl (Zanaflex) 4 mg PO Q8H PRN PRN PRN Reason: muscle spasms Last Admin: 07/15/19 08:21 Dose: 4 mg Documented by: STROKE Vital Signs/Narrative: Vital Signs Temp Pulse Resp BP Pulse Ox 07/15/19 09:10 98.0 F 64 16 148/76 H 97 07/15/19 07:35 98 Medical Necessity - Tobacco Use Smoking Status: Former smoker Tobacco Use: Non-smoker Assessment/Plan All Active Problems Hip fracture (Acute) 1. left hip fx - ortho following. surgery once ok with ortho, delayed due to xarelto - plan is for OR monday. added muscle relaxer as she is having left groin spasms that are aggravating the hip pain. Covid19 test negative. -Pacemaker check pending. 2. chronic constipation - daily MoM and prn miralax which she uses at home. 3. pAfib - xarelto held - continue cardizem. Echo pending. EKG shows Afib. trop neg. 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 -she has a pacemaker for Afib with bradycardia. 4. HTN - suspect 2/2 pain, defer new htn meds at this time. DVT ppx: SCDs DC planning: pt from [place], she is here visiting family This patient was seen by Bethel López PA-C under the supervision of Dr. Ann <[place] Ann - Last Filed: 07/15/19 12:22> Vitals/I&O's: Vital Signs Temp Pulse Resp BP Pulse Ox 98.0 F 63 16 148/76 H 97 07/15/19 09:10 07/15/19 09:58 07/15/19 09:10 07/15/19 09:10 07/15/19 09:10 Oxygen Delivery Method Room Air Weight: 70.4 kg Body Mass Index (BMI) 24.6 Intake and Output for Last 24 Hours 07/13/19 07/14/19 07/15/19 23:59 23:59 23:59 Intake Total 1615 / 1615 923.33 / 923.33 Output Total 900 / 1800 1950 / 1950 Balance 715 / -185 -1026.67 / -1026.67 Microbiology Past 72 Hours 07/14/19 03:00 Mucosa - Nasopharyngeal Coronavirus COVID-19 PCR - Final Laboratory Results 07/15/19 05:56: Sodium 138, Potassium 4.3, Chloride 104, Carbon Dioxide 30.0, Anion Gap 4 L, BUN 15, Creatinine 0.77, Estim Creat Clear Calc 44.10, Est GFR (MDRD) Af Amer 93, Est GFR (MDRD) Non-Af 77, BUN/Creatinine Ratio 19.5, Glucose 105, Calcium 8.2 L, TSH 0.91 07/15/19 05:56: WBC 8.4, RBC 4.11 L, Hgb 13.3, Hct 41.7, MCV 101.5 H, MCH 32.4 H , MCHC 31.9 L, RDW Std Deviation 54.4 H, RDW Coeff of Jinny 14.5, Plt Count 178, MPV 9.5, Immature Gran % (Auto) 0.700, Neut % (Auto) 65.8, Lymph % (Auto) 18.0 L , [place] % (Auto) 14.1 H, Eos % (Auto) 1.2, Baso % (Auto) 0.2, Absolute Neuts (auto) 5.6, Absolute Lymphs (auto) 1.52, Nucleated RBC % 0 07/15/19 05:56: PT 15.1 H, INR 1.2, APTT 33.6 Current Medications Acetaminophen (Tylenol) 650 mg PO Q6H PRN PRN PRN Reason: Pain Score 1-10/Temp > 100.7 F Last Admin: 07/15/19 02:55 Dose: 650 mg Documented by: Al Hydroxide/Mg Hydroxide (Mylanta Ii) 30 ml PO Q6H PRN PRN PRN Reason: Gastric Burning Albuterol Sulfate (Ventolin Aerosols) 2.5 mg INHALATION Q2H PRN PRN PRN Reason: Shortness of Breath/Wheezing Dextrose (D50w Syringe) 0 gm IV X1 PRN; Protocol PRN Reason: Hypoglycemia Diltiazem HCl (Cardizem Cd) 180 mg PO DAILY [facility] Last Admin: 07/15/19 08:29 Dose: 180 mg Documented by: Diphenhydramine HCl (Benadryl) 25 mg IV Q6H PRN PRN PRN Reason: PRURITIS Famotidine (Pepcid) 20 mg PO BID [facility] Last Admin: 07/15/19 08:29 Dose: 20 mg Documented by: Glucagon () 1 mg IM .X1 PRN PRN Reason: Hypoglycemia Guaifenesin (Robitussin) 20 ml PO Q4H PRN PRN PRN Reason: COUGH Hydralazine HCl (Apresoline Iv) 10 mg IV Q4H PRN PRN PRN Reason: SBP > 160 Hydromorphone HCl (Dilaudid Inj) 1 mg IV Q3H PRN PRN PRN Reason: severe pain 6-10/10 Last Admin: 07/14/19 19:50 Dose: 1 mg Documented by: Sodium Chloride () 1,000 mls @ 100 mls/hr IV .Q10H [facility] Last Admin: 07/15/19 02:56 Dose: 100 mls/hr Documented by: Magnesium Hydroxide (Milk Of Magnesia) 30 ml PO DAILY [facility] Last Admin: 07/15/19 08:31 Dose: Not Given Documented by: Melatonin (Melatonin) 3 mg PO QHS PRN PRN PRN Reason: INSOMNIA Last Admin: 07/14/19 22:49 Dose: 3 mg Documented by: Nitroglycerin (Nitrostat) 0.4 mg SUBLINGUAL Q5M PRN PRN Reason: CARDIAC/CHEST PAIN Ondansetron HCl (Zofran) 4 mg IV Q8H PRN PRN PRN Reason: NAUSEA/VOMITING Last Admin: 07/14/19 19:49 Dose: 4 mg Documented by: Oxycodone HCl (Oxyir) 5 mg PO Q4H PRN PRN PRN Reason: Pain Score 4-5/10 Last Admin: 07/15/19 08:21 Dose: 5 mg Documented by: Polyethylene Glycol (Miralax) 17 gm PO DAILY PRN PRN PRN Reason: Constipation Prochlorperazine Edisylate (Compazine Iv) 5 mg IV Q4H PRN PRN PRN Reason: Breakthrough nausea/vomiting Psyllium Hydrophilic Mucilloid (Metamucil) 1 packet PO DAILY PRN PRN PRN Reason: Constipation Senna/Docusate Sodium (Senokot-S, Brigid-Colace) 2 tablet PO BID PRN PRN PRN Reason: Constipation Last Admin: 07/14/19 15:30 Dose: 2 tablet Documented by: Sodium Chloride () 10 - 40 ml IV UD PRN PRN Reason: SALINE FLUSH Last Admin: 07/14/19 19:49 Dose: 10 ml Documented by: Throat Lozenges (Cepacol Sore Throat Lozenge) 1 lozenge MUCOUS MEM Q2H PRN PRN PRN Reason: SORE THROAT Tizanidine HCl (Zanaflex) 4 mg PO Q8H PRN PRN PRN Reason: muscle spasms Last Admin: 07/15/19 08:21 Dose: 4 mg Documented by: STROKE Vital Signs/Narrative: Vital Signs Temp Pulse Resp BP Pulse Ox 07/15/19 09:58 63 07/15/19 09:10 98.0 F 64 16 148/76 H 97 Assessment/Plan This patient was seen in conjunction with Bethel López PA-C . I have independently interviewed and examined the patient and reviewed pertinent historical, laboratory, and other data. Please refer to Bethel López PA-C note for details of this patient's presentation, findings, and recommendations. I have reviewed Bethel López PA-C note and concur with documented findings. In brief, patient is a 78-year-old lady admitted with a fall imaging studies demonstrated fracture involving the left hip admitted to regular nursing floor where patient is currently being managed. Patient was taking Xarelto for paroxysmal A. fib currently being held with plans for patient to undergo surgical intervention on 07/16/2019 Physical Examination: GENERAL: cooperative HEENT: Atraumatic; EYES; Anicteric, Normal Conjunctiva NECK; supple, normal thyroid, RESPIRATORY: Diminished to auscultation CARDIOVASCULAR: Regular S1 S2, GI: soft, normoactive bowel sounds, : No Renal angle tenderness; EXTREMITIES: No edema, no clubbing, NEURO: Awake; no lateralizing signs. SKIN: No Rash PSYCH; Flat affect Assessment: 1. Hip fracture 2. Paroxysmal A. fib 3. Hypertension 4. Chronic constipation 5. Conduction system disorder status post pacemaker placement Recommendations: 1. I have discussed the results of my overview and impressions with the patient 2. Options for management were reviewed Inpatient E&M: 90038 Subs Hosp L2
--- NOTE | 2019-07-15 11:16 | NURSING ---
Colton Chadwick [employer] rep called, states received pacer check- WNL per him.
[2019-07-15] MEDS: HYDROmorphone 1 MG/ML Syringe IV ×2 (12:26→21:16)
--- NOTE | 2019-07-15 14:57 | CHAPLAIN ---
Type of Pastoral Visit _x__ Initial Visit ___ Follow-up Visit ___ On-call Visit ___ General Patient Visit ___ Spiritual Assessment ___ Family Conference ___ Bereavement ___ Rapid Response ___ Code Blue ___ Other (describe below) Pastoral Care Referral From _x__ Patient ___ Family ___ Nurse ___ Physician ___ Freight Broker Agent ___ Record Searcher ___ Other (describe below) Sacrament/Intervention _x__ Active listening ___ Anointing ___ Yazidism ___ Bereavement ___ Communion _x__ Kanika exploration ___ _x__ Life review _x__ Prayer ___ Reconciliation ___ Sacrament of Sick _x__ Supportive presence ___ Wedding ___ Other (describe below) Pastoral Comments patient is very talkative and welcoming of spiritual care support; pt is from [place] and describes reason for being here and her home situation in [place]; pt is desiring to return home; pt speaks of her strong kanika and connection with a confucianist that her son pastors; pt welcomes the visit of production line manager since she has never been alone in a hospital before; pt requests prayer support and future visits from production line manager
[2019-07-15] MEDS: DiphenhydrAMINE 50 MG/ML Syringe 25 MG IV (23:06)
[2019-07-16] VITALS (15 sets, daily range): BP systolic 109–154; BP diastolic 48–81; PULSE 56–91; RESP 16–18; TEMP 36.5–37.2; O2SAT 94–100; BMI 24.6; BMI 26.4
[2019-07-16] MEDS: oxyCODONE 5 MG Tablet PO (04:26)
[2019-07-16] MEDS: Senna/Docusate Sodium 1 Tablet 2 TABLET PO ×2 (04:26→21:29)
[2019-07-16] MEDS: tiZANidine HCl 2 MG Tablet 4 MG PO (04:45)
[2019-07-16] MEDS: HYDROmorphone 1 MG/ML Syringe IV ×2 (06:39→11:32)
--- NOTE | 2019-07-16 07:48 | PCM.PN.ORT ---
Patient Problems: Active and Suspected Problems Hip fracture (Acute) Subjective: Patient reports left hip pain as expected. No other complaints. - Physical Exam Vitals/I&O's: Vital Signs Temp Pulse Resp BP Pulse Ox 98.2 F 62 18 126/48 H 99 07/16/19 04:17 07/16/19 04:20 07/16/19 04:17 07/16/19 04:17 07/16/19 04:17 Oxygen Delivery Method Room Air Weight: 155 lb 3.287 oz Body Mass Index (BMI) 24.6 Intake and Output for Last 24 Hours 07/14/19 07/15/19 07/16/19 23:59 23:59 23:59 Intake Total 1615 / 1615 2883.33 / 3083.33 460 / 460 Output Total 900 / 1800 2650 / 3400 1450 / 1450 Balance 715 / -185 233.33 / -316.67 -990 / -990 General: Alert, Oriented x3, No apparent distress Musculoskeletal: Tenderness - Left hip due to fx. LLE shortened and externally rotated. Neurological: Neuro grossly intact Microbiology Past 72 Hours 07/14/19 03:00 Mucosa - Nasopharyngeal Coronavirus COVID-19 PCR - Final Current Medications Acetaminophen (Tylenol) 650 mg PO Q6H PRN PRN PRN Reason: Pain Score 1-10/Temp > 100.7 F Last Admin: 07/15/19 23:06 Dose: 650 mg Documented by: Al Hydroxide/Mg Hydroxide (Mylanta Ii) 30 ml PO Q6H PRN PRN PRN Reason: Gastric Burning Albuterol Sulfate (Ventolin Aerosols) 2.5 mg INHALATION Q2H PRN PRN PRN Reason: Shortness of Breath/Wheezing Dextrose (D50w Syringe) 0 gm IV X1 PRN; Protocol PRN Reason: Hypoglycemia Diltiazem HCl (Cardizem Cd) 180 mg PO DAILY [facility] Last Admin: 07/15/19 08:29 Dose: 180 mg Documented by: Diphenhydramine HCl (Benadryl) 25 mg IV Q6H PRN PRN PRN Reason: PRURITIS Last Admin: 07/15/19 23:06 Dose: 25 mg Documented by: Famotidine (Pepcid) 20 mg PO BID [facility] Last Admin: 07/15/19 21:12 Dose: 20 mg Documented by: Glucagon () 1 mg IM .X1 PRN PRN Reason: Hypoglycemia Guaifenesin (Robitussin) 20 ml PO Q4H PRN PRN PRN Reason: COUGH Hydralazine HCl (Apresoline Iv) 10 mg IV Q4H PRN PRN PRN Reason: SBP > 160 Hydromorphone HCl (Dilaudid Inj) 1 mg IV Q3H PRN PRN PRN Reason: severe pain 6-10/10 Last Admin: 07/16/19 06:39 Dose: 1 mg Documented by: Sodium Chloride () 1,000 mls @ 100 mls/hr IV .Q10H [facility] Last Admin: 07/15/19 23:00 Dose: 100 mls/hr Documented by: Magnesium Hydroxide (Milk Of Magnesia) 30 ml PO DAILY [facility] Last Admin: 07/15/19 08:31 Dose: Not Given Documented by: Melatonin (Melatonin) 3 mg PO QHS PRN PRN PRN Reason: INSOMNIA Last Admin: 07/14/19 22:49 Dose: 3 mg Documented by: Nitroglycerin (Nitrostat) 0.4 mg SUBLINGUAL Q5M PRN PRN Reason: CARDIAC/CHEST PAIN Ondansetron HCl (Zofran) 4 mg IV Q8H PRN PRN PRN Reason: NAUSEA/VOMITING Last Admin: 07/14/19 19:49 Dose: 4 mg Documented by: Oxycodone HCl (Oxyir) 5 mg PO Q4H PRN PRN PRN Reason: Pain Score 4-5/10 Last Admin: 07/16/19 04:26 Dose: 5 mg Documented by: Polyethylene Glycol (Miralax) 17 gm PO DAILY PRN PRN PRN Reason: Constipation Prochlorperazine Edisylate (Compazine Iv) 5 mg IV Q4H PRN PRN PRN Reason: Breakthrough nausea/vomiting Psyllium Hydrophilic Mucilloid (Metamucil) 1 packet PO DAILY PRN PRN PRN Reason: Constipation Senna/Docusate Sodium (Senokot-S, Brigid-Colace) 2 tablet PO BID PRN PRN PRN Reason: Constipation Last Admin: 07/16/19 04:26 Dose: 2 tablet Documented by: Sodium Chloride () 10 - 40 ml IV UD PRN PRN Reason: SALINE FLUSH Last Admin: 07/14/19 19:49 Dose: 10 ml Documented by: Throat Lozenges (Cepacol Sore Throat Lozenge) 1 lozenge MUCOUS MEM Q2H PRN PRN PRN Reason: SORE THROAT Tizanidine HCl (Zanaflex) 4 mg PO Q8H PRN PRN PRN Reason: muscle spasms Last Admin: 07/16/19 04:45 Dose: 4 mg Documented by: Medical Necessity - Tobacco Use Smoking Status: Former smoker Tobacco Use: Non-smoker Assessment/Plan All Active Problems Hip fracture (Acute) Left subcapital hip fracture -- To OR later today for hemiarthroplasty.
[2019-07-16] MEDS: dilTIAZem CD 180 MG Capsule PO (08:19)
[2019-07-16] MEDS: Famotidine 20 MG Tablet PO ×2 (08:20→21:29)
[2019-07-16] MEDS: 0.9% Normal Saline 1,000 ML 100 ML IV ×2 (08:35→18:41)
--- NOTE | 2019-07-16 09:43 | CASEMGMT ---
Social Work Note Pt is scheduled for surgery today. SW will follow up with pt tomorrow to continue discussion of discharge plans. 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
--- NOTE | 2019-07-16 14:21 | PN_ITS ---
<Bethel López - Last Filed: 07/16/19 14:21> Patient Problems: Active and Suspected Problems Hip fracture (Acute) Reason for Visit: Left hip fx Subjective: Pt seen and examined prior to surgery today. Pt with some ongoing pain in the left hip but not as severe as yesterday. No fever/chills. No cough/SOB. No nausea / vomiting. No CP/palp. Vitals/I&O's: Vital Signs Temp Pulse Resp BP Pulse Ox 98.2 F 62 16 109/67 99 07/16/19 12:00 07/16/19 12:00 07/16/19 12:00 07/16/19 12:00 07/16/19 12:00 Oxygen Delivery Method Room Air Weight: 155 lb 3.287 oz Body Mass Index (BMI) 24.6 Intake and Output for Last 24 Hours 07/14/19 07/15/19 07/16/19 23:59 23:59 23:59 Intake Total 1615 / 1615 2883.33 / 3083.33 1418.33 / 1418.33 Output Total 900 / 1800 2650 / 3400 1750 / 1750 Balance 715 / -185 233.33 / -316.67 -331.67 / -331.67 General: Alert, Oriented x3, Cooperative HEENT: Atraumatic, PERRLA, EOMI, Normocephalic Neck: Supple, No JVD, Negative Carotid Bruits Lungs: Clear to auscultation, Normal air movement Cardiovascular: No murmurs, Irregular Rate Abdomen: Bowel Sounds Present, Soft, Non Tender Extremities: No edema, Capillary Refill Less than 3 Seconds Skin: No rashes, No breakdown Musculoskeletal: No Tenderness to Palpation of Joints or Extremities Neurological: Cranial nerves II-XII grossly intact Psych/Mental Status: Normal Affect, Appropriate, Alert and oriented to time, place, person, mood and affect Microbiology Past 72 Hours 07/14/19 03:00 Mucosa - Nasopharyngeal Coronavirus COVID-19 PCR - Final Current Medications Acetaminophen (Tylenol) 650 mg PO Q6H PRN PRN PRN Reason: Pain Score 1-10/Temp > 100.7 F Last Admin: 07/15/19 23:06 Dose: 650 mg Documented by: Al Hydroxide/Mg Hydroxide (Mylanta Ii) 30 ml PO Q6H PRN PRN PRN Reason: Gastric Burning Albuterol Sulfate (Ventolin Aerosols) 2.5 mg INHALATION Q2H PRN PRN PRN Reason: Shortness of Breath/Wheezing Dextrose (D50w Syringe) 0 gm IV X1 PRN; Protocol PRN Reason: Hypoglycemia Diltiazem HCl (Cardizem Cd) 180 mg PO DAILY [facility] Last Admin: 07/16/19 08:19 Dose: 180 mg Documented by: Diphenhydramine HCl (Benadryl) 25 mg IV Q6H PRN PRN PRN Reason: PRURITIS Last Admin: 07/15/19 23:06 Dose: 25 mg Documented by: Famotidine (Pepcid) 20 mg PO BID [facility] Last Admin: 07/16/19 08:20 Dose: 20 mg Documented by: Glucagon () 1 mg IM .X1 PRN PRN Reason: Hypoglycemia Guaifenesin (Robitussin) 20 ml PO Q4H PRN PRN PRN Reason: COUGH Hydralazine HCl (Apresoline Iv) 10 mg IV Q4H PRN PRN PRN Reason: SBP > 160 Hydromorphone HCl (Dilaudid Inj) 1 mg IV Q3H PRN PRN PRN Reason: severe pain 6-10/10 Last Admin: 07/16/19 11:32 Dose: 1 mg Documented by: Sodium Chloride () 1,000 mls @ 100 mls/hr IV .Q10H [facility] Last Admin: 07/16/19 08:35 Dose: 100 mls/hr Documented by: Magnesium Hydroxide (Milk Of Magnesia) 30 ml PO DAILY [facility] Last Admin: 07/16/19 08:19 Dose: Not Given Documented by: Melatonin (Melatonin) 3 mg PO QHS PRN PRN PRN Reason: INSOMNIA Last Admin: 07/14/19 22:49 Dose: 3 mg Documented by: Nitroglycerin (Nitrostat) 0.4 mg SUBLINGUAL Q5M PRN PRN Reason: CARDIAC/CHEST PAIN Ondansetron HCl (Zofran) 4 mg IV Q8H PRN PRN PRN Reason: NAUSEA/VOMITING Last Admin: 07/14/19 19:49 Dose: 4 mg Documented by: Oxycodone HCl (Oxyir) 5 mg PO Q4H PRN PRN PRN Reason: Pain Score 4-5/10 Last Admin: 07/16/19 04:26 Dose: 5 mg Documented by: Polyethylene Glycol (Miralax) 17 gm PO DAILY PRN PRN PRN Reason: Constipation Prochlorperazine Edisylate (Compazine Iv) 5 mg IV Q4H PRN PRN PRN Reason: Breakthrough nausea/vomiting Psyllium Hydrophilic Mucilloid (Metamucil) 1 packet PO DAILY PRN PRN PRN Reason: Constipation Senna/Docusate Sodium (Senokot-S, Brigid-Colace) 2 tablet PO BID PRN PRN PRN Reason: Constipation Last Admin: 07/16/19 04:26 Dose: 2 tablet Documented by: Sodium Chloride () 10 - 40 ml IV UD PRN PRN Reason: SALINE FLUSH Last Admin: 07/14/19 19:49 Dose: 10 ml Documented by: Throat Lozenges (Cepacol Sore Throat Lozenge) 1 lozenge MUCOUS MEM Q2H PRN PRN PRN Reason: SORE THROAT Tizanidine HCl (Zanaflex) 4 mg PO Q8H PRN PRN PRN Reason: muscle spasms Last Admin: 07/16/19 04:45 Dose: 4 mg Documented by: STROKE Vital Signs/Narrative: Vital Signs Temp Pulse Resp BP Pulse Ox 07/16/19 12:00 98.2 F 62 16 109/67 99 Medical Necessity - Tobacco Use Smoking Status: Former smoker Tobacco Use: Non-smoker Assessment/Plan All Active Problems Hip fracture (Acute) 1. left hip fx - ortho following. surgery once ok with ortho, delayed due to xarelto - to OR today. Pain improved. PTOT post op. 2. chronic constipation - daily MoM and prn miralax which she uses at home. 3. pAfib - xarelto held - continue cardizem. EKG shows Afib. trop neg. pt does not know who her heading repairer is. -she has a pacemaker for Afib with bradycardia. -Echo shows EF 65%, PASP 23 mmHg, normal LV size and systolic function, Afib. 4. HTN - suspect 2/2 pain, defer new htn meds at this time. DVT ppx: pt to resume xarelto post op if ok with orthopedics. [place] planning: pt from [place], she is here visiting family. She plans to return [place]. This patient was seen by Bethel López PA-C under the supervision of Dr. Ann <Denton Ann - Last Filed: 07/16/19 14:54> Vitals/I&O's: Vital Signs Temp Pulse Resp BP Pulse Ox 98.2 F 62 16 109/67 99 07/16/19 12:00 07/16/19 12:00 07/16/19 12:00 07/16/19 12:00 07/16/19 12:00 Oxygen Delivery Method Room Air Weight: 70.4 kg Body Mass Index (BMI) 24.6 Intake and Output for Last 24 Hours 07/14/19 07/15/19 07/16/19 23:59 23:59 23:59 Intake Total 1615 / 1615 2883.33 / 3083.33 1418.33 / 1418.33 Output Total 900 / 1800 2650 / 3400 1750 / 1750 Balance 715 / -185 233.33 / -316.67 -331.67 / -331.67 Microbiology Past 72 Hours 07/14/19 03:00 Mucosa - Nasopharyngeal Coronavirus COVID-19 PCR - Final Current Medications Acetaminophen (Tylenol) 650 mg PO Q6H PRN PRN PRN Reason: Pain Score 1-10/Temp > 100.7 F Last Admin: 07/15/19 23:06 Dose: 650 mg Documented by: Al Hydroxide/Mg Hydroxide (Mylanta Ii) 30 ml PO Q6H PRN PRN PRN Reason: Gastric Burning Albuterol Sulfate (Ventolin Aerosols) 2.5 mg INHALATION Q2H PRN PRN PRN Reason: Shortness of Breath/Wheezing Dextrose (D50w Syringe) 0 gm IV X1 PRN; Protocol PRN Reason: Hypoglycemia Diltiazem HCl (Cardizem Cd) 180 mg PO DAILY [facility] Last Admin: 07/16/19 08:19 Dose: 180 mg Documented by: Diphenhydramine HCl (Benadryl) 25 mg IV Q6H PRN PRN PRN Reason: PRURITIS Last Admin: 07/15/19 23:06 Dose: 25 mg Documented by: Famotidine (Pepcid) 20 mg PO BID [facility] Last Admin: 07/16/19 08:20 Dose: 20 mg Documented by: Glucagon () 1 mg IM .X1 PRN PRN Reason: Hypoglycemia Guaifenesin (Robitussin) 20 ml PO Q4H PRN PRN PRN Reason: COUGH Hydralazine HCl (Apresoline Iv) 10 mg IV Q4H PRN PRN PRN Reason: SBP > 160 Hydromorphone HCl (Dilaudid Inj) 1 mg IV Q3H PRN PRN PRN Reason: severe pain 6-10/10 Last Admin: 07/16/19 11:32 Dose: 1 mg Documented by: Sodium Chloride () 1,000 mls @ 100 mls/hr IV .Q10H [facility] Last Admin: 07/16/19 08:35 Dose: 100 mls/hr Documented by: Magnesium Hydroxide (Milk Of Magnesia) 30 ml PO DAILY [facility] Last Admin: 07/16/19 08:19 Dose: Not Given Documented by: Melatonin (Melatonin) 3 mg PO QHS PRN PRN PRN Reason: INSOMNIA Last Admin: 07/14/19 22:49 Dose: 3 mg Documented by: Nitroglycerin (Nitrostat) 0.4 mg SUBLINGUAL Q5M PRN PRN Reason: CARDIAC/CHEST PAIN Ondansetron HCl (Zofran) 4 mg IV Q8H PRN PRN PRN Reason: NAUSEA/VOMITING Last Admin: 07/14/19 19:49 Dose: 4 mg Documented by: Oxycodone HCl (Oxyir) 5 mg PO Q4H PRN PRN PRN Reason: Pain Score 4-5/10 Last Admin: 07/16/19 04:26 Dose: 5 mg Documented by: Polyethylene Glycol (Miralax) 17 gm PO DAILY PRN PRN PRN Reason: Constipation Prochlorperazine Edisylate (Compazine Iv) 5 mg IV Q4H PRN PRN PRN Reason: Breakthrough nausea/vomiting Psyllium Hydrophilic Mucilloid (Metamucil) 1 packet PO DAILY PRN PRN PRN Reason: Constipation Senna/Docusate Sodium (Senokot-S, Brigid-Colace) 2 tablet PO BID PRN PRN PRN Reason: Constipation Last Admin: 07/16/19 04:26 Dose: 2 tablet Documented by: Sodium Chloride () 10 - 40 ml IV UD PRN PRN Reason: SALINE FLUSH Last Admin: 07/14/19 19:49 Dose: 10 ml Documented by: Throat Lozenges (Cepacol Sore Throat Lozenge) 1 lozenge MUCOUS MEM Q2H PRN PRN PRN Reason: SORE THROAT Tizanidine HCl (Zanaflex) 4 mg PO Q8H PRN PRN PRN Reason: muscle spasms Last Admin: 07/16/19 04:45 Dose: 4 mg Documented by: STROKE Vital Signs/Narrative: Vital Signs Temp Pulse Resp BP Pulse Ox 07/16/19 12:00 98.2 F 62 16 109/67 99 Assessment/Plan This patient was seen in conjunction with Bethel López PA-C . I have independently interviewed and examined the patient and reviewed pertinent historical, laboratory, and other data. Please refer to Bethel López PA-C note for details of this patient's presentation, findings, and recommendations. I have reviewed Bethel López PA-C note and concur with documented findings. In brief, patient is a 78-year-old lady admitted with a fall imaging studies demonstrated fracture involving the left hip admitted to regular nursing floor where patient is currently being managed. Patient was taking Xarelto for paroxysmal A. fib currently being held with plans for patient to undergo surgical intervention on 07/16/2019 07/16/2019; patient scheduled to undergo surgical intervention of her left hip fracture this afternoon Physical Examination: GENERAL: cooperative HEENT: Atraumatic; EYES; Anicteric, Normal Conjunctiva NECK; supple, normal thyroid, RESPIRATORY: Diminished to auscultation CARDIOVASCULAR: Regular S1 S2, GI: soft, normoactive bowel sounds, : No Renal angle tenderness; EXTREMITIES: No edema, no clubbing, NEURO: Awake; no lateralizing signs. SKIN: No Rash PSYCH; Flat affect Assessment: 1. Hip fracture 2. Paroxysmal A. fib 3. Hypertension 4. Chronic constipation 5. Conduction system disorder status post pacemaker placement Recommendations: 1. I have discussed the results of my overview and impressions with the patient 2. Options for management were reviewed Inpatient E&M: [id number] [facility] Hosp L2
--- NOTE | 2019-07-16 15:00 | HIP_PTH ---
PATIENT: DONITA MAXWELL LOC: [facility] U#:[id number] AGE/SX: 78/F ROOM: NV323 RE07/14/[address]: Dr. Denton Ann MD : 1940 BED: 1 DIS: 07/18/2019 SPEC #: [id number] RECD: 07/17/19 09:10 STATUS: ROCKY REQ #: [id number] MISAEL: 07/16/19 15:[address]: Manjinder Arredondo DEPT: SURGICAL PATHOLOGY RECD BY: Mahendra Monroe ENTERED: 07/17/19 10:59 SP TYPE: TOTAL HIP OTHR DR: MD Dr. Denton Wilson MD No Primary Care Phys Tissues: Hip, NOS Procedures: Decalcification bone/plaque Surgery Specimen Level IV HEADER OPERATION: Left hip hemiarthroplasty PRE-OP DIAGNOSIS: Left subcapital hip fracture TISSUE SUBMITTED: Left femoral head MICROSCOPIC DIAGNOSIS Left femoral head, total hip fracture: Consistent with organizing fracture harlan. AM:michaelle 07/23/19 MICROSCOPIC DESCRIPTION Slides are reviewed. GROSS DESCRIPTION Received in fixative is one container labeled with the patient's name and designated left femoral head. The specimen consists of a pink-chaves femoral head measuring 4.5 x 4.5 x 4.5 cm. The articular surface is grossly unremarkable. The nonarticular surface is hemorrhagic and irregular. Also present free in the container are two irregular fragments of dark chaves bone measuring in aggregate 5 x 4 x 2 cm. Stopboard Assembler sections are submitted in two cassettes after decalcification. / AM:michaelle 07/17/19 TC:5 CPT: 39416, 03527
[2019-07-16] MEDS: Cefazolin 2 GM in 0.9% Normal Saline 100 ML IV (15:38)
--- NOTE | 2019-07-16 16:50 | OP.PCM_ITS ---
Report of Operation Date of Procedure: 07/16/19 Pre-Operative Diagnosis: Displaced subcapital left hip fx Post-Operative Diagnosis: same Surgery/Procedure Performed:: Hemiarthroplasty left hip Description of Surgical Findings:: Primary Surgeon/Physician: Manjinder Arredondo fibre composite technician: Sea Cano PA-C fibre composite technician: Pre-Operative Diagnosis: Displaced, subcapital fracture left hip Post-Operative Diagnosis: same Surgery/Procedure Performed: Hemiarthroplasty left hip Estimated Blood Loss: 75 cc Specimen's Removed: femoral head Type of Anesthesia: general ASA Class: 3 Implants: [Red Lion Accolade size 5 stem, 46 mm, + 0 bipolar head ] Surgical Indications: Patient has fracture of the [left ] hip. Patient was cleared from a medical standpoint. The risks of the surgery was discussed with the patient and family at length. Procedure Description: The patient was greeted in the preoperative area. The [left ] hip was marked with surgical marker and preoperative antibiotics administered. The patient was then taken to OR suite in stable condition. Once the patient was placed in the supine position on the operating room table and once adequate anesthesia was obtained the patient was then placed in the lateral decubitus position with the surgical hip facing the field. All bony prominences were well-padded. A commercial hip position was utilized. The appropriate extremity was then prepped and draped in usual sterile fashion. Ioban was placed on the skin. Surgical timeout was performed and surgery was commenced. Standard posterolateral approach to the hip was then performed incision was planned and carried out with a #10 blade. Dissection was then carried length of the incision to the IT band which was split proximally and distally. A Charnley retractor was then placed for soft tissue retraction exposing the gluteus medius. The hip was then approached through a transgluteal approach and dislocated through an posterior capsulectomy. The incarcerated femoral head was removed and measured on the back table. Findings are consistent with a femoral neck fracture. A femoral osteotomy was then created approximately 1 fingerbreadth above the lesser trochanter. No significant abnormality of the acetabulum is identified. Any remaining tissue or bone was removed from the acetabulum Attention was then turned to the femoral preparation. The hip was placed in the 90/90 position and a lateralizing box osteotome was utilized. Femoral starting awl was used followed by sequential broaching to the appropriate size. Excellent purchase was obtained with the stem no stem subsidence and excellent rotational stability was confirmed. A calcar reamer was then used in the trial head neck was placed on the broach. The hip was then located and taken through full range of motion flexion internal and external rotation as well as extension. Excellent stability was noted no impingement was identified of the components and leg lengths appear to be appropriate. The hip was at this point dislocated and the trial femoral components were removed. The final femoral stem was then implanted and impacted to the appropriate depth. Again excellent purchase was obtained no stem subsidence or rotational instability was noted. The hip was once again trialed and confirmation of leg length and stability was performed. Soft tissue tension also appeared to be appropriate. At this point the hip was redislocated and the trunnion was cleaned and dried meticulously in the appropriate size femoral head was placed on the clean dry trunnion using a 12/14 Newman taper. The hip was once again relocated and again taken through full range of motion. Copious irrigation was performed. Anatomic closure of the gluteus medius and minimus was performed with #1 Vicryl [id number] type fashion followed by closure of the IT band with #1 Vicryl 0 Vicryl was utilized in subcutaneous tissue and surgical nicholas were placed in the skin. A well- padded nonadherent dressing was applied. Patient was taken to PACU in stable condition. No complications were identified. Will follow standard postop p rotocol for hemiarthroplasty. Patient must use assistive device for ambulation for approximately 6 weeks. My kindergarten teacher assistant, Mr. Cano, provided a vital role in this procedure. He assisted in positioning the patient, He held retractors and maneuvered the leg to provide optimal visualization during the surgery. He then closed the wound and applied the sterile post-op dressing. fibre composite technician: Beto Cano Type of Anesthesia:: General Anesthesiologist: Sekou Almaraz - Admit VTE Documentation VTE Present on Admission: No VTE Mechan Device Prophylaxis: SCD's, Thigh High MICHAEL Hose VTE Pharm Prophylaxis ordered?: Yes
--- NOTE | 2019-07-16 17:14 | RAD_ITS ---
STUDY: X-RAY - PELVIS AND LEFT HIP REASON FOR EXAM: Female, 78 years old. LEFT HIP FX POST OP TECHNIQUE: 2 views of the pelvis and hip. COMPARISON: 07/14/2019 FINDINGS: Status post left total hip arthroplasty with associated postsurgical changes in the adjacent soft tissues. The remainder of the osseous structures are unremarkable. Right hip joint is normally aligned. Moderate right hip arthritis. IMPRESSION: Status post left total hip arthroplasty. Electronically Signed: Jony Whitman, at 18:47 EDT Tel , Service support , RAD/Hip Min 2 Views (Portable)
[2019-07-16] MEDS: Magnesium Hydroxide 30 ML UDC PO (22:20)
[2019-07-17] VITALS (10 sets, daily range): BP systolic 98–127; BP diastolic 48–71; PULSE 60–77; RESP 16–18; TEMP 36.5–37; O2SAT 96–98; BMI 26.4
[2019-07-17] MEDS: Lactated Ringers 1,000 ML 125 ML IV (01:17)
[2019-07-17] MEDS: 0.9% Saline Lock 10 ML Syringe IV (05:40)
[2019-07-17] MEDS: tiZANidine HCl 2 MG Tablet 4 MG PO (05:40)
[2019-07-17 06:01] LABS: Hematocrit 39.7 % (37-47); Hemoglobin 12.9 g/dL (12.0-15.0); Mean Corp Hgb Conc 32.5 g/dL (32-36); Mean Corpuscular Hgb 32.7 pg (27.0-32.0); Mean Corpuscular Volume 100.5 fL (81-99); Mean Platelet Vol. 9.6 fl (6.2-12.0); Platelet Count 207 K/mm3 (150-450); RBC Distribution Width CV 13.8 % (11.6-14.6); RBC Distribution Width SD 51.3 fl (35.1-43.9); Red Blood Count 3.95 M/mm3 (4.2-5.4); White Blood Count 9.3 K/mm3 (4.4-11.0)
[2019-07-17 06:16] LABS: Anion Gap 6 (5-15); BUN 10 mg/dL (7-18); BUN/Creat Ratio 12.4 RATIO (10-20); Calcium,Total 8.4 mg/dL (8.5-10.1); Chloride 101 mmol/L (98-107); EST Glomerular Filtration Rate 73 mL/min (>60); Est Glom Filt Rate - Afr Amer 89 mL/min (>60); Estimated Creatinine Clearance 55.13 ml/min; Glucose 152 mg/dL (74-106); Potassium 4.1 mmol/L (3.5-5.1); Sodium Level 138 mmol/L (136-145)
--- NOTE | 2019-07-17 07:22 | NUR.TO.PHY ---
When patient is discharged, she is asking for a prescription for her cardizem. She says she will be staying with her daughter here for a week or two and will not have enough medication.
[2019-07-17] MEDS: Rivaroxaban 10 MG Tablet PO (08:35)
[2019-07-17] MEDS: Magnesium Hydroxide 30 ML UDC PO (10:21)
[2019-07-17] MEDS: dilTIAZem CD 180 MG Capsule PO (10:22)
[2019-07-17] MEDS: Polyethylene Glycol 3350 17 GM PACKET 34 GM PO (10:23)
--- NOTE | 2019-07-17 10:37 | PCM.PN.HOSP ---
<Bethel López - Last Filed: 07/17/19 10:37> Patient Problems: Active and Suspected Problems Hip fracture (Acute) Reason for Visit: left hip fx Subjective: Pt doing well post op. No N/V/D. No fever/chills. She ambulated with therapy and plans to go to stay with her daughter at discharge tomorrow. She has ongoing muscle spasms in her left groin especially with walking. She also is very worried about her bowels, she states she has chronic constipation, and that she has not had a BM in 3 days, and that she is not leaving until she moves her bowels. She uses miralax about twice per week at home. Vitals/I&O's: Vital Signs Temp Pulse Resp BP Pulse Ox 97.8 F 60 16 98/51 L 98 07/17/19 08:12 07/17/19 08:12 07/17/19 08:12 07/17/19 08:12 07/17/19 08:12 Oxygen Flow Rate (L/min) 3 Oxygen Delivery Method Room Air Weight: 155 lb 3.287 oz Body Mass Index (BMI) 24.6 Intake and Output for Last 24 Hours 07/15/19 07/16/19 07/17/19 23:59 23:59 23:59 Intake Total 2883.33 / 3083.33 2528.33 / 2828.33 1749.16 / 1749.16 Output Total 2650 / 3400 2550 / 3625 1974 Balance 233.33 / -316.67 -21.67 / -796.67 -225.84 / -225.84 General: Alert, Oriented x3, Cooperative HEENT: Atraumatic, PERRLA, EOMI, Normocephalic Neck: Supple, No JVD, Negative Carotid Bruits Lungs: Clear to auscultation, Normal air movement Cardiovascular: Regular rate, No murmurs Abdomen: Bowel Sounds Present, Soft, Non Tender Extremities: No edema, Capillary Refill Less than 3 Seconds Skin: No rashes, No breakdown Musculoskeletal: No Tenderness to Palpation of Joints or Extremities Neurological: Cranial nerves II-XII grossly intact Psych/Mental Status: Normal Affect, Appropriate, Alert and oriented to time, place, person, mood and affect Laboratory Results 07/17/19 05:40: WBC 9.3, RBC 3.95 L, Hgb 12.9, Hct 39.7, MCV 100.5 H, MCH 32.7 H, MCHC 32.5, RDW Std Deviation 51.3 H, RDW Coeff of Jinny 13.8, Plt Count 207, MPV 9.6 07/17/19 05:40: Sodium 138, Potassium 4.1, Chloride 101, Carbon Dioxide 31.0, Anion Gap 6, BUN 10, Creatinine 0.80, Estim Creat Clear Calc 55.13, Est GFR (MDRD) Af Amer 89, Est GFR (MDRD) Non-Af 73, BUN/Creatinine Ratio 12.4, Glucose 152 H, Calcium 8.4 L Current Medications Acetaminophen (Tylenol) 650 mg PO Q6H PRN PRN PRN Reason: Pain Score 1-10/Temp > 100.7 F Last Admin: 07/15/19 23:06 Dose: 650 mg Documented by: Al Hydroxide/Mg Hydroxide (Mylanta Ii) 30 ml PO Q6H PRN PRN PRN Reason: Gastric Burning Albuterol Sulfate (Ventolin Aerosols) 2.5 mg INHALATION Q2H PRN PRN PRN Reason: Shortness of Breath/Wheezing Bisacodyl (Dulcolax) 10 mg RECTAL DAILY PRN PRN PRN Reason: Constipation Dextrose (D50w Syringe) 0 gm IV X1 PRN; Protocol PRN Reason: Hypoglycemia Diltiazem HCl (Cardizem Cd) 180 mg PO DAILY [facility] Last Admin: 07/17/19 10:22 Dose: 180 mg Documented by: Diphenhydramine HCl (Benadryl) 25 mg IV Q6H PRN PRN PRN Reason: PRURITIS Last Admin: 07/15/19 23:06 Dose: 25 mg Documented by: Glucagon () 1 mg IM .X1 PRN PRN Reason: Hypoglycemia Guaifenesin (Robitussin) 20 ml PO Q4H PRN PRN PRN Reason: COUGH Hydralazine HCl (Apresoline Iv) 10 mg IV Q4H PRN PRN PRN Reason: SBP > 160 Lactated Ringer's () 1,000 mls @ 125 mls/hr IV .Q8H [facility] Last Infusion: 07/17/19 05:39 Dose: 0 mls/hr Documented by: Magnesium Hydroxide (Milk Of Magnesia) 30 ml PO DAILY [facility] Last Admin: 07/17/19 10:21 Dose: 30 ml Documented by: Melatonin (Melatonin) 3 mg PO QHS PRN PRN PRN Reason: INSOMNIA Last Admin: 07/14/19 22:49 Dose: 3 mg Documented by: Nitroglycerin (Nitrostat) 0.4 mg SUBLINGUAL Q5M PRN PRN Reason: CARDIAC/CHEST PAIN Ondansetron HCl (Zofran) 4 mg IV Q8H PRN PRN PRN Reason: NAUSEA/VOMITING Last Admin: 07/14/19 19:49 Dose: 4 mg Documented by: Oxycodone HCl (Oxyir) 5 - 10 mg PO Q4H PRN PRN PRN Reason: Pain Score 4-5/10 Polyethylene Glycol (Miralax) 17 gm PO DAILY PRN PRN PRN Reason: Constipation Prochlorperazine Edisylate (Compazine Iv) 5 mg IV Q4H PRN PRN PRN Reason: Breakthrough nausea/vomiting Promethazine HCl (Phenergan) 12.5 mg IM Q6H PRN PRN; Protocol PRN Reason: NAUSEA/VOMITING Psyllium Hydrophilic Mucilloid (Metamucil) 1 packet PO DAILY PRN PRN PRN Reason: Constipation Rivaroxaban (Xarelto) 10 mg PO DAILY@0800 [facility] Last Admin: 07/17/19 08:35 Dose: 10 mg Documented by: Senna/Docusate Sodium (Senokot-S, Brigid-Colace) 2 tablet PO BID PRN PRN PRN Reason: Constipation Last Admin: 07/16/19 21:29 Dose: 2 tablet Documented by: Sodium Chloride () 10 - 40 ml IV UD PRN PRN Reason: SALINE FLUSH Last Admin: 07/17/19 05:40 Dose: 10 ml Documented by: Throat Lozenges (Cepacol Sore Throat Lozenge) 1 lozenge MUCOUS MEM Q2H PRN PRN PRN Reason: SORE THROAT Tizanidine HCl (Zanaflex) 8 mg PO Q8H PRN PRN PRN Reason: muscle spasms STROKE Vital Signs/Narrative: Vital Signs Temp Pulse Resp BP Pulse Ox 07/17/19 08:12 97.8 F 60 16 98/51 L 98 07/17/19 07:27 60 Medical Necessity - Tobacco Use Smoking Status: Former smoker Tobacco Use: Non-smoker Assessment/Plan All Active Problems Hip fracture (Acute) 1. left hip fx - doing well. ambulatory. POD#1. Resume afib dose xarelto. tizanidine for left groin muscle spasms 2. chronic constipation - sennakot, MoM, miralax, dulcolax, psyllium. if needed will do lactulose or enema. no bm x3 days. Pt needs to ambulate more. 3. pAfib - xarelto held - continue cardizem. EKG shows Afib. trop neg. pt does not know who her academic coach is. -she has a pacemaker for Afib with bradycardia. -Echo shows EF 65%, PASP 23 mmHg, normal LV size and systolic function, Afib. 4. HTN - no further marked HTN. Continue cardizem. DVT ppx: xarelto DC planning: pt going home with daughter at DC suspect tomorrow. This patient was seen by Bethel López PA-C under the supervision of Dr. Ann <Denton Ann - Last Filed: 07/17/19 12:23> Vitals/I&O's: Vital Signs Temp Pulse Resp BP Pulse Ox 97.8 F 60 16 98/51 L 98 07/17/19 08:12 07/17/19 08:12 07/17/19 08:12 07/17/19 08:12 07/17/19 08:12 Oxygen Flow Rate (L/min) 3 Oxygen Delivery Method Room Air Weight: 70.4 kg Body Mass Index (BMI) 24.6 Intake and Output for Last 24 Hours 07/15/19 07/16/19 07/17/19 23:59 23:59 23:59 Intake Total 2883.33 / 3083.33 2528.33 / 2828.33 1749.16 / 1749.16 Output Total 2650 / 3400 2550 / 3625 1974 Balance 233.33 / -316.67 -21.67 / -796.67 -225.84 / -225.84 Laboratory Results 07/17/19 05:40: WBC 9.3, RBC 3.95 L, Hgb 12.9, Hct 39.7, MCV 100.5 H, MCH 32.7 H, MCHC 32.5, RDW Std Deviation 51.3 H, RDW Coeff of Jinny 13.8, Plt Count 207, MPV 9.6 07/17/19 05:40: Sodium 138, Potassium 4.1, Chloride 101, Carbon Dioxide 31.0, Anion Gap 6, BUN 10, Creatinine 0.80, Estim Creat Clear Calc 55.13, Est GFR (MDRD) Af Amer 89, Est GFR (MDRD) Non-Af 73, BUN/Creatinine Ratio 12.4, Glucose 152 H, Calcium 8.4 L Current Medications Acetaminophen (Tylenol) 650 mg PO Q6H PRN PRN PRN Reason: Pain Score 1-10/Temp > 100.7 F Last Admin: 07/15/19 23:06 Dose: 650 mg Documented by: Al Hydroxide/Mg Hydroxide (Mylanta Ii) 30 ml PO Q6H PRN PRN PRN Reason: Gastric Burning Albuterol Sulfate (Ventolin Aerosols) 2.5 mg INHALATION Q2H PRN PRN PRN Reason: Shortness of Breath/Wheezing Bisacodyl (Dulcolax) 10 mg RECTAL DAILY PRN PRN PRN Reason: Constipation Dextrose (D50w Syringe) 0 gm IV X1 PRN; Protocol PRN Reason: Hypoglycemia Diltiazem HCl (Cardizem Cd) 180 mg PO DAILY [facility] Last Admin: 07/17/19 10:22 Dose: 180 mg Documented by: Diphenhydramine HCl (Benadryl) 25 mg IV Q6H PRN PRN PRN Reason: PRURITIS Last Admin: 07/15/19 23:06 Dose: 25 mg Documented by: Glucagon () 1 mg IM .X1 PRN PRN Reason: Hypoglycemia Guaifenesin (Robitussin) 20 ml PO Q4H PRN PRN PRN Reason: COUGH Hydralazine HCl (Apresoline Iv) 10 mg IV Q4H PRN PRN PRN Reason: SBP > 160 Lactated Ringer's () 1,000 mls @ 125 mls/hr IV .Q8H [facility] Last Infusion: 07/17/19 05:39 Dose: 0 mls/hr Documented by: Magnesium Hydroxide (Milk Of Magnesia) 30 ml PO DAILY [facility] Last Admin: 07/17/19 10:21 Dose: 30 ml Documented by: Melatonin (Melatonin) 3 mg PO QHS PRN PRN PRN Reason: INSOMNIA Last Admin: 07/14/19 22:49 Dose: 3 mg Documented by: Nitroglycerin (Nitrostat) 0.4 mg SUBLINGUAL Q5M PRN PRN Reason: CARDIAC/CHEST PAIN Ondansetron HCl (Zofran) 4 mg IV Q8H PRN PRN PRN Reason: NAUSEA/VOMITING Last Admin: 07/14/19 19:49 Dose: 4 mg Documented by: Oxycodone HCl (Oxyir) 5 - 10 mg PO Q4H PRN PRN PRN Reason: Pain Score 4-5/10 Polyethylene Glycol (Miralax) 17 gm PO DAILY PRN PRN PRN Reason: Constipation Prochlorperazine Edisylate (Compazine Iv) 5 mg IV Q4H PRN PRN PRN Reason: Breakthrough nausea/vomiting Promethazine HCl (Phenergan) 12.5 mg IM Q6H PRN PRN; Protocol PRN Reason: NAUSEA/VOMITING Psyllium Hydrophilic Mucilloid (Metamucil) 1 packet PO DAILY [facility] Rivaroxaban (Xarelto) 15 mg PO DAILY@0800 [facility] Senna/Docusate Sodium (Senokot-S, Brigid-Colace) 2 tablet PO BID [facility] Sodium Chloride () 10 - 40 ml IV UD PRN PRN Reason: SALINE FLUSH Last Admin: 07/17/19 05:40 Dose: 10 ml Documented by: Throat Lozenges (Cepacol Sore Throat Lozenge) 1 lozenge MUCOUS MEM Q2H PRN PRN PRN Reason: SORE THROAT Tizanidine HCl (Zanaflex) 8 mg PO Q8H PRN PRN PRN Reason: muscle spasms Assessment/Plan This patient was seen in conjunction with Bethel López PA-C . I have independently interviewed and examined the patient and reviewed pertinent historical, laboratory, and other data. Please refer to Bethel López PA-C note for details of this patient's presentation, findings, and recommendations. I have reviewed Bethel López PA-C note and concur with documented findings. In brief, patient is a 78-year-old lady admitted with a fall imaging studies demonstrated fracture involving the left hip admitted to regular nursing floor where patient is currently being managed. Patient was taking Xarelto for paroxysmal A. fib currently being held with plans for patient to undergo surgical intervention on 07/16/2019 07/16/2019; patient scheduled to undergo surgical intervention of her left hip fracture this afternoon 07/17/2019: Patient underwent left hemiarthroplasty the day prior. Seen this a.m. patient complains of pain in the left groin Physical Examination: GENERAL: cooperative HEENT: Atraumatic; EYES; Anicteric, Normal Conjunctiva NECK; supple, normal thyroid, RESPIRATORY: Diminished to auscultation CARDIOVASCULAR: Regular S1 S2, GI: soft, normoactive bowel sounds, : No Renal angle tenderness; EXTREMITIES: No edema, no clubbing, NEURO: Awake; no lateralizing signs. SKIN: No Rash PSYCH; Flat affect Assessment: 1. Hip fracture status post left hemiarthroplasty on 07/16/2019 2. Paroxysmal A. fib 3. Hypertension 4. Chronic constipation 5. Conduction system disorder status post pacemaker placement Recommendations: 1. I have discussed the results of my overview and impressions with the patient 2. Options for management were reviewed Inpatient E&M: [id number] [facility] L2
--- NOTE | 2019-07-17 13:42 | PCM.PN.ORT ---
Patient Problems: Active and Suspected Problems Hip fracture (Acute) Subjective: Patient sitting up bedside eating lunch. Patient states pain is well-managed. Patient denies chest pain, shortness of breath, calf pain, nausea vomiting. Patient states would like to go home, and do home therapy. Patient has no other complaints at this time. Objective: Dressing is clean dry intact. Negative signs or symptoms of DVT. Vital signs labs within normal limits. 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 On the left leg, operatively, the patient has good flexion-extension of the knee good plantar flexion dorsiflexion of the foot vascular is otherwise intact. - Physical Exam Vitals/I&O's: Vital Signs Temp Pulse Resp BP Pulse Ox 97.8 F 60 16 98/51 L 98 07/17/19 08:12 07/17/19 08:12 07/17/19 08:12 07/17/19 08:12 07/17/19 08:12 Oxygen Flow Rate (L/min) 3 Oxygen Delivery Method Room Air Weight: 70.4 kg Body Mass Index (BMI) 24.6 Intake and Output for Last 24 Hours 07/15/19 07/16/19 07/17/19 23:59 23:59 23:59 Intake Total 2883.33 / 3083.33 2528.33 / 2828.33 1749.16 / 1749.16 Output Total 2650 / 3400 2550 / 3625 1974 / 1974 Balance 233.33 / -316.67 -21.67 / -796.67 -225.84 / -225.84 General: Alert, Oriented x3, Cooperative HEENT: PERRLA Oral: Moist Mucosa Neurological: Cranial nerves II-XII grossly intact Psych/Mental Status: Normal Affect, Alert and oriented to time, place, person, mood and affect Laboratory Results 07/17/19 05:40: WBC 9.3, RBC 3.95 L, Hgb 12.9, Hct 39.7, MCV 100.5 H, MCH 32.7 H, MCHC 32.5, RDW Std Deviation 51.3 H, RDW Coeff of Jinny 13.8, Plt Count 207, MPV 9.6 07/17/19 05:40: Sodium 138, Potassium 4.1, Chloride 101, Carbon Dioxide 31.0, Anion Gap 6, BUN 10, Creatinine 0.80, Estim Creat Clear Calc 55.13, Est GFR (MDRD) Af Amer 89, Est GFR (MDRD) Non-Af 73, BUN/Creatinine Ratio 12.4, Glucose 152 H, Calcium 8.4 L Current Medications Acetaminophen (Tylenol) 650 mg PO Q6H PRN PRN PRN Reason: Pain Score 1-10/Temp > 100.7 F Last Admin: 07/15/19 23:06 Dose: 650 mg Documented by: Al Hydroxide/Mg Hydroxide (Mylanta Ii) 30 ml PO Q6H PRN PRN PRN Reason: Gastric Burning Albuterol Sulfate (Ventolin Aerosols) 2.5 mg INHALATION Q2H PRN PRN PRN Reason: Shortness of Breath/Wheezing Bisacodyl (Dulcolax) 10 mg RECTAL DAILY PRN PRN PRN Reason: Constipation Dextrose (D50w Syringe) 0 gm IV X1 PRN; Protocol PRN Reason: Hypoglycemia Diltiazem HCl (Cardizem Cd) 180 mg PO DAILY [facility] Last Admin: 07/17/19 10:22 Dose: 180 mg Documented by: Diphenhydramine HCl (Benadryl) 25 mg IV Q6H PRN PRN PRN Reason: PRURITIS Last Admin: 07/15/19 23:06 Dose: 25 mg Documented by: Glucagon () 1 mg IM .X1 PRN PRN Reason: Hypoglycemia Guaifenesin (Robitussin) 20 ml PO Q4H PRN PRN PRN Reason: COUGH Hydralazine HCl (Apresoline Iv) 10 mg IV Q4H PRN PRN PRN Reason: SBP > 160 Magnesium Hydroxide (Milk Of Magnesia) 30 ml PO DAILY [facility] Last Admin: 07/17/19 10:21 Dose: 30 ml Documented by: Melatonin (Melatonin) 3 mg PO QHS PRN PRN PRN Reason: INSOMNIA Last Admin: 07/14/19 22:49 Dose: 3 mg Documented by: Nitroglycerin (Nitrostat) 0.4 mg SUBLINGUAL Q5M PRN PRN Reason: CARDIAC/CHEST PAIN Ondansetron HCl (Zofran) 4 mg IV Q8H PRN PRN PRN Reason: NAUSEA/VOMITING Last Admin: 07/14/19 19:49 Dose: 4 mg Documented by: Oxycodone HCl (Oxyir) 5 - 10 mg PO Q4H PRN PRN PRN Reason: Pain Score 4-5/10 Polyethylene Glycol (Miralax) 17 gm PO DAILY PRN PRN PRN Reason: Constipation Prochlorperazine Edisylate (Compazine Iv) 5 mg IV Q4H PRN PRN PRN Reason: Breakthrough nausea/vomiting Promethazine HCl (Phenergan) 12.5 mg IM Q6H PRN PRN; Protocol PRN Reason: NAUSEA/VOMITING Psyllium Hydrophilic Mucilloid (Metamucil) 1 packet PO DAILY [facility] Rivaroxaban (Xarelto) 15 mg PO DAILY@0800 [facility] Senna/Docusate Sodium (Senokot-S, Brigid-Colace) 2 tablet PO BID [facility] Sodium Chloride () 10 - 40 ml IV UD PRN PRN Reason: SALINE FLUSH Last Admin: 07/17/19 05:40 Dose: 10 ml Documented by: Throat Lozenges (Cepacol Sore Throat Lozenge) 1 lozenge MUCOUS MEM Q2H PRN PRN PRN Reason: SORE THROAT Tizanidine HCl (Zanaflex) 8 mg PO Q8H PRN PRN PRN Reason: muscle spasms Medical Necessity - Tobacco Use Smoking Status: Former smoker Tobacco Use: Non-smoker Assessment/Plan All Active Problems Hip fracture (Acute) Status post left hip fracture. Status post hemiarthroplasty left hip. Stable Plan 1. Continue all pain medications as prescribed 2. Weight-bear as tolerated with walker 3. Continue postop DVT prophylaxis anticoagulation as directed by medicine 4. Encourage incentive spirometry 5. Shower 07/20/2019 6. Remove nicholas 07/29/2019 7. Follow-up with Dr. Arredondo in 2 weeks, call for appointment 8. Change dressing prior to discharge with an Ag dressing 9. Discharge home when clear with medicine
--- NOTE | 2019-07-17 13:59 | DCINST_ITS ---
Discharge Diet: No Restrictions Discharge Activity: May Not Drive, May Shower, Use Walker May shower in (days): 3 - only if incision is dry and without drainage. Do NOT soak/submerge in tub/pool/starr/stream/hot tub. May resume sexual activity in: No Restrictions Ice area for (Minutes): 20 - every hour while awake Weight Bearing Status: Weight bearing as tolerated Lifting Restrictions: 20 pounds Elevate: Operative Extremity Call your doctor if your incision/area has: Continuous Slow Oozing, Sudden Increased Bleeding, Increased Pain/ Swelling, Increased Redness, Foul Smelling Discharge Call your doctor if you observe: Fever of 101 or Higher, Inability to urinate, Inability to have a bowel movement, Shortness of breath, Fainting spells, Chest pain, Increased palpitations (irregular heartbeat), Calf discomfort, Uncontrolled pain Change Dressing in (Days):: 0 - Change daily and as needed. Remove Dressing in (days):: 8 Cleanse incision/area with: Soap & Water Allergies/Adverse Reactions: Allergies No Known Allergies Allergy (Unverified 07/14/19 02:01) Medications to take at Discharge Diltiazem HCl [Diltiazem ER] 180 mg PO DAILY 07/14/19 Rivaroxaban [Xarelto] 15 mg PO DAILY 07/14/19 Primary Care Physician: [facility] ,Out of [NON-STAFF] - Test Results: Test results from this visit will be discussed in further detail at your follow-up appointment, if applicable. Please Follow Up With: Manjinder Arredondo DO When: 2 weeks. call for appt. [phone]
--- NOTE | 2019-07-17 15:52 | CASEMGMT ---
Addendum entered by Tracy Rm 07/17/19 16:00: ANUJA updated by RN FREDY that [facility] is able to accept pt. Original Note: Social Work Note SW updated by PT that pt is requesting to discharge home with [facility], Walker, and shower chair. SW in to speak with pt. Pt confirms that she will be staying at her daughters home in [place] at discharge until she is able to return to [place]. SW asked pt for Nano's address as there is none listed. Pt states that she is not sure of Nano's address. SW informed pt that this worker will need to call Nano to get address for [facility]. SW provided pt with list of [facility] that accept pt's insurance. Pt agreeable to [facility]. SW explained that this worker will make referral. Pt confirms that she will need walker and shower chair at home. SW asked pt if she had preference for [employer] company and pt states whoever takes my insurance I am fine with. ANUJA placed a call to pt's daughter Nano. Nano states her address is [address] [place] [address]. [place] [phone]. SW explained that pt is requesting to return home with [facility] and is agreeable to [facility]. SW explained that referral will be made. Nano asked how pt will get therapy arranged when pt returns to [place]. ANUJA explained that pt can find a [facility] in [place] and could go through her PCP to get therapy arranged either in home or outpatient if pt feels the need to continue therapy at discharge. Nano asked when pt will be able to return to [place] and this worker informed Nano that she will need to follow up with Ortho to determine when they approve for pt to return to [place]. Nano states understanding. ANUJA placed a call to Jeri with [facility], provided referral for RN, PT/OT. ANUJA entered C order in computer. ANUJA updated CHARLES DANIEL that pt will need walker and shower chair at discharge. Plan: Home with [facility] Tracy Rm [employer], [employer]
[2019-07-17] MEDS: Senna/Docusate Sodium 1 Tablet 2 TABLET PO (20:21)
[2019-07-17] MEDS: Bisacodyl 10 MG Suppository RECTAL (20:24)
[2019-07-18 02:25] VITALS: BP 125/62; PULSE 60; RESP 16; TEMP 36.8; O2SAT 99
[2019-07-18 02:59] VITALS: PULSE 79
[2019-07-18 07:28] LABS: Hematocrit 32.6 % (37-47); Hemoglobin 10.6 g/dL (12.0-15.0); Mean Corp Hgb Conc 32.5 g/dL (32-36); Mean Corpuscular Hgb 32.5 pg (27.0-32.0); Mean Platelet Vol. 9.5 fl (6.2-12.0); Platelet Count 184 K/mm3 (150-450); RBC Distribution Width CV 14.4 % (11.6-14.6); RBC Distribution Width SD 52.6 fl (35.1-43.9); Red Blood Count 3.26 M/mm3 (4.2-5.4); White Blood Count 9.9 K/mm3 (4.4-11.0)
--- NOTE | 2019-07-18 07:38 | DCINST_ITS ---
- Discharge Diagnoses Current Active Problems: Current Active and Chronic Problems Hip fracture (Acute) You will use the following diet at home:: No restrictions Discharge Activity: May Not Drive, May Shower, Use Walker May shower in (days): 3 - only if incision is dry and without drainage. Do NOT soak/submerge in tub/pool/starr/stream/hot tub. May resume sexual activity in: No Restrictions Ice area for (Minutes): 20 - every hour while awake Weight Bearing Status: Weight bearing as tolerated Keep extremity elevated above heart level: Operative Extremity Call your doctor if your incision/area has: Continuous Slow Oozing, Sudden Increased Bleeding, Increased Pain/ Swelling, Increased Redness, Foul Smelling Discharge Call your doctor if you observe: Fever of 101 or Higher, Inability to urinate, Inability to have a bowel movement, Shortness of breath, Fainting spells, Chest pain, Increased palpitations (irregular heartbeat), Calf discomfort, Uncontrolled pain Change Dressing in (Days):: 0 - Change daily and as needed. Remove Dressing in (days):: 8 Cleanse incision/area with: Soap & Water Allergies/Adverse Reactions: Allergies No Known Allergies Allergy (Unverified 07/14/19 02:01) Medications to take at Discharge Diltiazem HCl [Diltiazem 24Hr ER] 180 mg PO DAILY 07/14/19 Rivaroxaban [Xarelto] 15 mg PO DAILY 07/14/19 Acetaminophen [Tylenol Tablet] 650 mg PO Q6H PRN PRN tablet 07/18/19 Oxycodone [Oxyir] 5 - 10 mg PO Q4H PRN PRN 5 Days #20 tab 07/18/19 The following prescriptions were given: Oxycodone [Oxyir] 5 - 10 mg PO Q4H PRN PRN 5 Days #20 tab PRN Reason: Pain Score 4-5/10 Prescription Printed Primary Care Physician: [facility] Doctor,Out of [NON-STAFF] - Test Results: Test results from this visit will be discussed in further detail at your follow- up appointment, if applicable. Please Follow Up With: Manjinder Arredondo DO When: 2 weeks. call for appt. [phone] Proposed Discharge Date: 07/18/19
--- NOTE | 2019-07-18 07:38 | PCM.DC.SUM ---
Discharge Date and Diagnosis - Problem List Patient Problems: Active and Suspected Problems Hip fracture (Acute) Date of Admission: 07/14/19 Date of Discharge: 07/18/19 - Primary Discharge Diagnosis Acute Problems: Active Problems Hip fracture (Acute) Hospital Course and Treatment Imaging Results: Clinical Impression(s) from Imaging Studies Chest X-Ray 07/14/19 02:45 IMPRESSION: No acute cardiopulmonary disease. Electronically Signed: Tammy Miller MD at 3:53 EDT , Service support , Hip/Pelvis X-Ray 07/14/19 02:45 IMPRESSION: Fracture of the LEFT hip. Electronically Signed: Darrius Ramachandran MD at 3:57 EDT , Service support , Hip X-Ray 07/16/19 17:14 Summary of Care Provided: In brief, patient is a 78-year-old lady admitted with a fall imaging studies demonstrated fracture involving the left hip admitted to regular nursing floor w 1. Hip fracture status post left hemiarthroplasty on 07/16/2019 -Patient was discharged home on muscle relaxants pain medication as well as home health therapy with physical therapy as outpatient. Patient to follow-up with orthopedic surgery 2. Paroxysmal A. fib ?Rate controlled on Cardizem also on systemic anticoagulation with Xarelto which was held prior to her admission resumed on discharge 3. Hypertension ~ blood pressure controlled, home medications continued with dose adjustment as needed 4. Chronic constipation ?Treated symptomatically 5. Conduction system disorder status post pacemaker placement Patient Problems: Active and Suspected Problems Hip fracture (Acute) Objective: GENERAL: cooperative HEENT: Atraumatic; EYES; Anicteric, Normal Conjunctiva NECK; supple, normal thyroid, RESPIRATORY: Diminished to auscultation CARDIOVASCULAR: Regular S1 S2, GI: soft, normoactive bowel sounds, : No Renal angle tenderness; EXTREMITIES: No edema, no clubbing, NEURO: Awake; no lateralizing signs. SKIN: No Rash PSYCH; Flat affect - Physical Exam Vitals/I&O's: Vital Signs Temp Pulse Resp BP Pulse Ox 98.2 F 79 16 125/62 H 99 07/18/19 02:25 05/21/20 02:59 07/18/19 02:25 07/18/19 02:25 07/18/19 02:25 Oxygen Flow Rate (L/min) 3 Oxygen Delivery Method Room Air Weight: 70.4 kg Body Mass Index (BMI) 24.6 Intake and Output for Last 24 Hours 07/16/19 07/17/19 07/18/19 23:59 23:59 23:59 Intake Total 2528.33 / 2828.33 1749.16 / 1949.16 400 / 400 Output Total 2550 / 3625 1974 Balance -21.67 / -796.67 -225.84 / -25.84 400 / 400 Laboratory Results 07/18/19 07:13: WBC 9.9, RBC 3.26 L, Hgb 10.6 L, Hct 32.6 L, MCV 100.0 H, MCH 32.5 H, MCHC 32.5, RDW Std Deviation 52.6 H, RDW Coeff of Jinny 14.4, Plt Count 184, MPV 9.5 07/18/19 07:13: Sodium Pending, Potassium Pending, Chloride Pending, Carbon Dioxide Pending, Anion Gap Pending, BUN Pending, Creatinine Pending, Est GFR (MDRD) Af Amer Pending, Est GFR (MDRD) Non-Af Pending, BUN/Creatinine Ratio Pending, Glucose Pending, Calcium Pending, Magnesium Pending Current Medications Acetaminophen (Tylenol) 650 mg PO Q6H PRN PRN PRN Reason: Pain Score 1-10/Temp > 100.7 F Last Admin: 07/15/19 23:06 Dose: 650 mg Documented by: Al Hydroxide/Mg Hydroxide (Mylanta Ii) 30 ml PO Q6H PRN PRN PRN Reason: Gastric Burning Albuterol Sulfate (Ventolin Aerosols) 2.5 mg INHALATION Q2H PRN PRN PRN Reason: Shortness of Breath/Wheezing Bisacodyl (Dulcolax) 10 mg RECTAL DAILY PRN PRN PRN Reason: Constipation Last Admin: 07/17/19 20:24 Dose: 10 mg Documented by: Dextrose (D50w Syringe) 0 gm IV X1 PRN; Protocol PRN Reason: Hypoglycemia Diltiazem HCl (Cardizem Cd) 180 mg PO DAILY SARA Last Admin: 07/17/19 10:22 Dose: 180 mg Documented by: Diphenhydramine HCl (Benadryl) 25 mg IV Q6H PRN PRN PRN Reason: PRURITIS Last Admin: 07/15/19 23:06 Dose: 25 mg Documented by: Glucagon () 1 mg IM .X1 PRN PRN Reason: Hypoglycemia Guaifenesin (Robitussin) 20 ml PO Q4H PRN PRN PRN Reason: COUGH Hydralazine HCl (Apresoline Iv) 10 mg IV Q4H PRN PRN PRN Reason: SBP > 160 Magnesium Hydroxide (Milk Of Magnesia) 30 ml PO DAILY [facility] Last Admin: 07/17/19 10:21 Dose: 30 ml Documented by: Melatonin (Melatonin) 3 mg PO QHS PRN PRN PRN Reason: INSOMNIA Last Admin: 07/14/19 22:49 Dose: 3 mg Documented by: Nitroglycerin (Nitrostat) 0.4 mg SUBLINGUAL Q5M PRN PRN Reason: CARDIAC/CHEST PAIN Ondansetron HCl (Zofran) 4 mg IV Q8H PRN PRN PRN Reason: NAUSEA/VOMITING Last Admin: 07/14/19 19:49 Dose: 4 mg Documented by: Oxycodone HCl (Oxyir) 5 - 10 mg PO Q4H PRN PRN PRN Reason: Pain Score 4-5/10 Polyethylene Glycol (Miralax) 17 gm PO DAILY PRN PRN PRN Reason: Constipation Prochlorperazine Edisylate (Compazine Iv) 5 mg IV Q4H PRN PRN PRN Reason: Breakthrough nausea/vomiting Promethazine HCl (Phenergan) 12.5 mg IM Q6H PRN PRN; Protocol PRN Reason: NAUSEA/VOMITING Psyllium Hydrophilic Mucilloid (Metamucil) 1 packet PO DAILY [facility] Rivaroxaban (Xarelto) 15 mg PO DAILY@0800 [facility] Senna/Docusate Sodium (Senokot-S, Brigid-Colace) 2 tablet PO BID [facility] Last Admin: 07/17/19 20:21 Dose: 2 tablet Documented by: Sodium Chloride () 10 - 40 ml IV UD PRN PRN Reason: SALINE FLUSH Last Admin: 07/17/19 05:40 Dose: 10 ml Documented by: Throat Lozenges (Cepacol Sore Throat Lozenge) 1 lozenge MUCOUS MEM Q2H PRN PRN PRN Reason: SORE THROAT Tizanidine HCl (Zanaflex) 8 mg PO Q8H PRN PRN PRN Reason: muscle spasms Discharge Diet: No Restrictions Discharge Activity: May Not Drive, May Shower, Use Walker May shower in (days): 3 - only if incision is dry and without drainage. Do NOT soak/submerge in tub/pool/starr/stream/hot tub. May resume sexual activity in: No Restrictions Ice area for (Minutes): 20 - every hour while awake Weight Bearing Status: Weight bearing as tolerated Keep extremity elevated above heart level: Operative Extremity Call your doctor if your incision/area has: Continuous Slow Oozing, Sudden Increased Bleeding, Increased Pain/ Swelling, Increased Redness, Foul Smelling Discharge Call your doctor if you observe: Fever of 101 or Higher, Inability to urinate, Inability to have a bowel movement, Shortness of breath, Fainting spells, Chest pain, Increased palpitations (irregular heartbeat), Calf discomfort, Uncontrolled pain Change Dressing in (Days):: 0 - Change daily and as needed. Remove Dressing in (days):: 8 Cleanse incision/area with: Soap & Water Home Medications: Medications to take at Discharge Diltiazem HCl [Diltiazem 24Hr ER] 180 mg PO DAILY 07/14/19 Rivaroxaban [Xarelto] 15 mg PO DAILY 07/14/19 Acetaminophen [Tylenol Tablet] 650 mg PO Q6H PRN PRN tab 07/18/19 Oxycodone [Oxyir] 5 - 10 mg PO Q4H PRN PRN 5 Days #20 tab 07/18/19 Tizanidine HCl [Zanaflex] 8 mg PO Q8H PRN PRN #20 tab 07/18/19 Following Prescrptions Were Given to Patient: Oxycodone [Oxyir] 5 - 10 mg PO Q4H PRN PRN 5 Days #20 tab PRN Reason: Pain Score 4-5/10 Prescription Printed Tizanidine HCl [Zanaflex] 8 mg PO Q8H PRN PRN #20 tab PRN Reason: muscle spasms Prescription Printed Primary Care Physician: Shelley Doctor,Out of [NON-STAFF] - Please Follow Up With: Manjinder Arredondo, DO When: 2 weeks. call for appt. [phone] Disposition: Home with Home Health Minutes spent on discharge:: 45 Patient Condition:: Stable Medical Necessity - Tobacco Use Smoking Status: Former smoker Tobacco Use: Non-smoker Meaningful Use Info Meaningful Use Diagnoses (Choose all that apply): None applicable Inpatient E&M: 75758 Disch Hosp
[2019-07-18 07:55] LABS: Anion Gap 5 (5-15); BUN 18 mg/dL (7-18); BUN/Creat Ratio 28.3 RATIO (10-20); Calcium,Total 8.3 mg/dL (8.5-10.1); Chloride 103 mmol/L (98-107); Creatinine, Serum 0.64 mg/dL (0.55-1.02); EST Glomerular Filtration Rate 96 mL/min (>60); Est Glom Filt Rate - Afr Amer 116 mL/min (>60); Glucose 109 mg/dL (74-106); Magnesium 2.2 mg/dL (1.6-2.6); Potassium 3.9 mmol/L (3.5-5.1); Sodium Level 137 mmol/L (136-145)
[2019-07-18 08:21] VITALS: BP 119/65; PULSE 73; RESP 16; TEMP 36.8; O2SAT 98
[2019-07-18] MEDS: Rivaroxaban 15 MG Tablet PO (08:30)
[2019-07-18] MEDS: dilTIAZem CD 180 MG Capsule PO (09:47)
[2019-07-18] MEDS: Senna/Docusate Sodium 1 Tablet 2 TABLET PO (09:47)
--- NOTE | 2019-07-18 11:43 | CASEMGMT ---
Social Work SW met with pt and confirmed d/c plan. Pt planning to discharge today to daughter Nano's home with [facility] RN,PT,OT. Walker has been delivered to pt room and pt informed that shower chair is not covered by insurance and can be purchased at local stores. Pt requested phone call be made to pt dgt and informed of d/c plan. SW spoke with Nano and informed of above d/c plan and Nano is agreeable. Nano stating medical records will need sent to pt PCP in [place]. Release of records form given to pt and phone number to medical records given to daughter. DIOGO Diaz
== END 2019-07-18 14:12 | disposition home health service (06) | DRG 470 ==
LOC: ED 04:09 → MS3 04:13
PROVIDERS: Orthopaedic Surgery; Admitting Provider Family Medicine; Emergency Provider Emergency Medicine; Referring Provider Family Medicine; Visit Provider Internal Medicine
PROC: (CPT 27125; principal; 2019-07-16 14:40)
DX: S72.052A Unspecified fracture of head of left femur, initial encounter for closed fracture (principal); W01.0XXA Fall on same level from slipping, tripping and stumbling without subsequent striking against object, initial encounter; I48.0 Paroxysmal atrial fibrillation; Z66 Do not resuscitate; I10 Essential (primary) hypertension; K59.09 Other constipation; Z87.891 Personal history of nicotine dependence; Z79.01 Long term (current) use of anticoagulants; Z82.3 Family history of stroke; Z90.710 Acquired absence of both cervix and uterus; Z95.0 Presence of cardiac pacemaker; Z82.49 Family history of ischemic heart disease and other diseases of the circulatory system; I45.9 Conduction disorder, unspecified; Z11.59 Encounter for screening for other viral diseases
CPT/HCPCS: 36415; 71045; 73502; 80048; 80053; 83735; 84443; 84484; 85025; 85027; 85610; 85730; 86850; 86900; 86901; 87635; 88305; 88311; 93005; 93306; 96361; 96374; 96375; 97116; 97162; 97166; 97530; 99251; 99285; C1776; G2023; J7030; J7120; A4216; G0463; J2405; U0002